=== PATIENT | male | born 1955 | race African-American/Black ===

== ENCOUNTER 2016-09-03 10:19 | Inpatient (IN) | payer OTHER ==
[2016-09-03 10:57] VITALS: BMI 23.7
--- NOTE | 2016-09-03 13:07 | HP ---
CIWA Score - CIWA Score Nausea/Vomitin-Int. Nausea w/Dry Heave Muscle Tremors: 3 Anxiety: 4-Mod. Anxious/Guarded Agitation: 3 Paroxysmal Sweats: 1-Minimal Palms Moist Orientation: 0-Oriented Tacttile Disturbances: 2-Mild Itch/Numbness/Burn (AND DIARRHEA) Auditory Disturbances: 0-None Visual Disturbances: 0-None Headache: 0-None Present CIWA-Ar Total Score: 17 Admission ROS S - HPI Chief Complaint: DETOX TX FOR ALCOHOL DEPENDENCE Allergies/Adverse Reactions: Allergies Allergy/AdvReac Type Severity Reaction Status Date / Time No Known Allergies Allergy Verified 09/03/16 11:47 History of Present Illness: 61 Y/O AA/MALE WITH A HX OF ALCOHOL AND COCAINE DEPENDENCE SEEKING DETOX TX. Exam Limitations: No Limitations - Ebola screening Have you traveled outside of the country in the last 21 days: No Have you had contact with anyone from an Ebola affected area: No Have you been sick,other than usual withdrawal symptoms: No Do you have a fever: No - Review of Systems Constitutional: Chills, Loss of Appetite, Night Sweats, Changes in sleep, Unintentional Wgt. Loss EENT: reports: Blurred Vision, Tearing, Nose Congestion, Dental Problems ( MISSING TEETH) Respiratory: reports: No Symptoms reported Cardiac: reports: Lightheadedness GI: reports: Diarrhea, Nausea, Poor Appetite, Poor Fluid Intake, Indigestion, Abdominal cramping : reports: Frequency Musculoskeletal: reports: No Symptoms Reported Integumentary: reports: Dryness Neuro: reports: Headache, Numbness, Tremors, Unsteady Gait, Dizziness Endocrine: reports: No Symptoms Reported Hematology: reports: No Symptoms Reported Psychiatric: reports: Orientated x3, Anxious, Depressed Other Systems: Reviewed and Negative Patient History - Patient Medical History Hx Anemia: No Hx Asthma: No Hx Chronic Obstructive Pulmonary Disease (COPD): No Hx Cancer: No Hx Cardiac Disorders: No Hx Congestive Heart Failure: No Hx Hypertension: No Hx Hypercholesterolemia: No Hx Pacemaker: No HX Cerebrovascular Accident: No Hx Seizures: No Hx Dementia: No Hx Diabetes: No Hx Gastrointestinal Disorders: No ( EXCEPT HEARTBURN SOMETIMES) Hx Liver Disease: No Hx Genitourinary Disorders: No Hx Sexually Transmitted Disorders: No Hx Renal Disease (ESRD): No Hx Thyroid Disease: No Hx Human Immunodeficiency Virus (HIV): No (NEGATIVE HX last 01/07) Hx Hepatitis C: No Hx Depression: No Hx Suicide Attempt: No (DENIES) Hx Bipolar Disorder: No Hx Schizophrenia: No - Patient Surgical History Past Surgical History: No Hx Neurologic Surgery: No Hx Cataract Extraction: No Hx Cardiac Surgery: No Hx Lung Surgery: No Hx Breast Surgery: No Hx Breast Biopsy: No Hx Abdominal Surgery: No Hx Appendectomy: No Hx Cholecystectomy: No Hx Genitourinary Surgery: No Hx Orthopedic Surgery: No Anesthesia Reaction: No - PPD History Previous Implant?: Yes Documented Results: Positive w/o proof Results: CXR(-)04/18/15 PPD to be Administered?: No - Reproductive History Patient is a Female of Child Bearing Age (11 -55 yrs old): No (MALE) - Smoking Cessation Smoking history: Current every day smoker Have you smoked in the past 12 months: Yes Aproximately how many cigarettes per day: 5 Hx Chewing Tobacco Use: No Initiated information on smoking cessation: Yes 'Breaking Loose' booklet given: 09/03/16 - Substance & Tx. History Hx Alcohol Use: Yes (BEER) Hx Substance Use: Yes (CRACK) Substance Use Type: Cocaine Hx Substance Use Treatment: Yes (LAST DETOX AT [facility] 01/2016) - Substances Abused Crack Route: Smoking Frequency: Daily Amount used: $14 Age of first use: 29 Date of Last Use: 09/02/16 Alcohol-beer Route: Oral Frequency: Daily Amount used: 3 (40 oz.) Age of first use: 19 Date of Last Use: 09/02/16 Family Disease History - Family Disease History Family Disease History: Other: Mother (HTN) Admission Physical Exam [facility] - Vital Signs Vital Signs: Vital Signs - 24 hr 09/03/16 10:53 Temperature 96.8 F L Pulse Rate 75 Respiratory 20 Rate Blood Pressure 118/74 - Physical General Appearance: Yes: Moderate Distress, Alcohol on Breath, Irritable, Anxious HEENTM: Yes: EOMI, Normocephalic, ADALGISA, Pharynx Normal Respiratory: Yes: Chest Non-Tender, Lungs Clear, Normal Breath Sounds, No Respiratory Distress Neck: Yes: Supple, Trachea in good position Breast: Yes: Breast Exam Deferred Cardiology: Yes: Regular Rhythm, Regular Rate, S1, S2 Abdominal: Yes: Normal Bowel Sounds, Non Tender, Flat, Soft Genitourinary: Yes: Other (N/C) Back: Yes: Within Normal Limits Musculoskeletal: Yes: full range of Motion, Gait Steady Extremities: Yes: Normal Range of Motion, Non-Tender Neurological: Yes: captain/check airman II-XII NML intact, Fully Oriented, Alert, Motor Strength 5/5 Integumentary: Yes: Dry, Warm Lymphatic: Yes: Within Normal Limits - Diagnostic (1) Alcohol dependence with uncomplicated withdrawal Current Visit: Yes Status: Acute (2) Cocaine dependence, uncomplicated Current Visit: Yes Status: Acute Cleared for Admission [facility] - Detox or Rehab [facility] Level of Care: Medically Managed Detox Regimen/Protocol: Librium [facility] Breath Alcohol Content Breath Alcohol Content: 0.042 Urine Drug Screen - Results Drug Screen Negative: No Urine Drug Screen Results: DANUTA-Cocaine
[2016-09-03] MEDS ORDERED: MENTHOL/PHENOL 1 EACH UD MM PRN (13:21)
[2016-09-03] MEDS ORDERED: MAGNESIUM CITRATE 300 ML BOTTLE PO PRN (13:21)
[2016-09-03] MEDS ORDERED: hydrOXYzine PAMOATE 25 MG CAPSULE (FP) PO PRN (13:21)
[2016-09-03] MEDS ORDERED: P-EPHED 60MG/TRIPROLIDI 2.5MG TABLET PO PRN (13:21)
[2016-09-03] MEDS ORDERED: chlordiazePOXIDE HCL 25 MG CAPSULE PO PRN (13:21)
[2016-09-03] MEDS ORDERED: LOPERAMIDE HCL 2 MG CAPSULE PO PRN (13:21)
[2016-09-03] MEDS ORDERED: NICOTINE POLACRILEX 2 MG GUM BUC PRN (13:21)
[2016-09-03] MEDS ORDERED: ACETAMINOPHEN 325 MG TABLET (FP) PO PRN (13:21)
[2016-09-03] MEDS ORDERED: MAGNESIUM HYDROX 2400MG/30ML ORAL SUSPENSION 30 ML CUP PO PRN (13:21)
[2016-09-03] MEDS ORDERED: IBUPROFEN 400 MG TABLET (FP) PO PRN (13:21)
[2016-09-03] MEDS ORDERED: MAG HYDROX/AL HYDROX/SIMETH 30 ML UNIT-DOSE CUP PO PRN (13:21)
[2016-09-03] MEDS ORDERED: guaiFENesin/D-METHORPHAN HB 10 ML UNIT-DOSE CUPS PO PRN (13:21)
[2016-09-03] MEDS: NICOTINE 14 MG/24 HOURS TOPICAL PATCH TD SCH (15:01)
[2016-09-03] MEDS: chlordiazePOXIDE HCL 25 MG CAPSULE PO SCH ×2 (17:27→22:13)
[2016-09-03 17:35] LABS: URINE APPEARANCE CLEAR; URINE BILIRUBIN NEGATIVE (NEGATIVE); URINE BLOOD NEGATIVE (NEGATIVE); URINE COLOR LTYELLOW; URINE GLUCOSE (UA) NEGATIVE (NEGATIVE); URINE KETONE NEGATIVE (NEGATIVE); URINE LEUK ESTERASE NEGATIVE (NEGATIVE); URINE NITRITE NEGATIVE (NEGATIVE); URINE PROTEIN NEGATIVE (NEGATIVE); URINE UROBILINOGEN NEGATIVE E.U./dl (0.2-1.0)
[2016-09-03] MEDS: THIAMINE HCL 100 MG TABLET (FP) PO SCH (22:13)
[2016-09-03] MEDS: diphenhydrAMINE HCL 50 MG CAPSULE PO PRN (22:13)
[2016-09-04] MEDS: chlordiazePOXIDE HCL 25 MG CAPSULE PO SCH ×4 (05:47→22:34)
[2016-09-04] MEDS ORDERED: ONDANSETRON *ODT* 4 MG TABLET SL PRN (10:06)
[2016-09-04] MEDS: PRENATAL VITAMINS W/ FOLIC ACID TABLET (FP) PO SCH (10:06)
[2016-09-04] MEDS: NICOTINE 14 MG/24 HOURS TOPICAL PATCH TD SCH (10:07)
--- NOTE | 2016-09-04 10:17 | PN ---
S CIWA - CIWA Score Nausea/Vomitin-No Nausea/No Vomiting Muscle Tremors: 4-Moderate,w/Arms Extend Anxiety: 3 Agitation: 4-Moderately Restless Paroxysmal Sweats: 3 Orientation: 0-Oriented Tacttile Disturbances: 0-None Auditory Disturbances: 0-None Visual Disturbances: 0-None Headache: 0-None Present CIWA-Ar Total Score: 14 BHS Progress Note (SOAP) Subjective: nausea headache sweats irritable Objective: 09/04/16 10:15 Vital Signs Temperature 97.0 F L 09/04/16 09:50 Pulse Rate 64 09/04/16 09:50 Respiratory Rate 18 09/04/16 09:50 Blood Pressure 128/70 09/04/16 09:50 O2 Sat by Pulse Oximetry (%) Laboratory Tests 09/03/16 15:00 Urine Color Ltyellow Urine Appearance Clear Urine pH 5.0 Ur Specific [place] 1.020 Urine Protein Negative Urine Glucose (UA) Negative Urine Ketones Negative Urine Blood Negative Urine Nitrite Negative Urine Bilirubin Negative Urine Urobilinogen Negative Ur Leukocyte Esterase Negative labs pending awake/alert ambulating no acute distress Assessment: 09/04/16 10:16 withdrawal sx Plan: continue detox increase fluids labs pending zofran prn
[2016-09-04 10:20] LABS: MCH 30.4 pg (25.7-33.7); MCHC 32.9 g/dl (32.0-35.9); MEAN CELL VOLUME 92.2 fl (80-96); PLATELET COUNT 191 K/MM3 (134-434); RDW 13.7 % (11.9-15.9); WHITE BLOOD COUNT 6.4 K/mm3 (4.0-10.0)
--- NOTE | 2016-09-04 11:00 | EKG ---
Test Reason : Blood Pressure : / mmHG Vent. Rate : 058 BPM Atrial Rate : 058 BPM P-R Int : 176 ms QRS Dur : 088 ms QT Int : 470 ms P-R-T Axes : 074 068 066 degrees QTc Int : 461 ms SINUS BRADYCARDIA OTHERWISE NORMAL ECG NO PREVIOUS ECGS AVAILABLE Confirmed by MEGHANN GARZA MD ([id number]) on 09/04/2016 10:59:47 AM Referred By: Confirmed By:MEGHANN GARZA MD
[2016-09-04 11:12] LABS: ALBUMIN 4.1 g/dl (3.4-5.0); ALK PHOS 59 U/L (45-117); ANION GAP 11 (8-16); BILIRUBIN,TOTAL 0.5 mg/dL (0.2-1.0); CALCIUM 8.4 mg/dL (8.5-10.1); CO2 24 mmol/L (21-32); COCKROFT - GAULT 82.47; CREATININE 1.1 mg/dL (0.7-1.3); GLUCOSE,RANDOM 122 mg/dL (74-106); SGOT/AST 21 U/L (15-37); SGPT/ALT 21 U/L (12-78); TOT PROT 7.3 g/dl (6.4-8.2)
[2016-09-04] MEDS: diphenhydrAMINE HCL 50 MG CAPSULE PO PRN (22:34)
[2016-09-04] MEDS: THIAMINE HCL 100 MG TABLET (FP) PO SCH (22:34)
[2016-09-05] MEDS: chlordiazePOXIDE HCL 25 MG CAPSULE PO SCH ×2 (05:45→10:19)
[2016-09-05] MEDS: PRENATAL VITAMINS W/ FOLIC ACID TABLET (FP) PO SCH (10:19)
[2016-09-05] MEDS: NICOTINE 14 MG/24 HOURS TOPICAL PATCH TD SCH (10:19)
--- NOTE | 2016-09-05 10:34 | PN ---
[facility] CIWA - CIWA Score Nausea/Vomitin-No Nausea/No Vomiting Muscle Tremors: 4-Moderate,w/Arms Extend Anxiety: 2 Agitation: 3 Paroxysmal Sweats: 2 Orientation: 0-Oriented Tacttile Disturbances: 0-None Auditory Disturbances: 0-None Visual Disturbances: 0-None Headache: 0-None Present CIWA-Ar Total Score: 11 S Progress Note (SOAP) Subjective: sweats agitation interrupted sleep Objective: 09/05/16 10:33 Vital Signs Temperature 98.1 F 09/05/16 09:53 Pulse Rate 54 L 09/05/16 09:53 Respiratory Rate 18 09/05/16 09:53 Blood Pressure 142/86 09/05/16 09:53 O2 Sat by Pulse Oximetry (%) Laboratory Tests 09/03/16 09/04/16 09/04/16 15:00 06:00 06:00 WBC 6.4 D RBC 4.14 Hgb 12.6 Hct 38.2 MCV 92.2 MCHC 32.9 RDW 13.7 Plt Count 191 MPV 9.0 Sodium 143 Potassium 4.0 Chloride 108 H Carbon Dioxide 24 Anion Gap 11 BUN 9 D Creatinine 1.1 Creat Clearance w eGFR > 60 Random Glucose 122 H D Calcium 8.4 L Total Bilirubin 0.5 AST 21 ALT 21 Alkaline Phosphatase 59 Total Protein 7.3 Albumin 4.1 Urine Color Ltyellow Urine Appearance Clear Urine pH 5.0 Ur Specific [place] 1.020 Urine Protein Negative Urine Glucose (UA) Negative Urine Ketones Negative Urine Blood Negative Urine Nitrite Negative Urine Bilirubin Negative Urine Urobilinogen Negative Ur Leukocyte Esterase Negative RPR Titer 09/04/16 06:00 WBC RBC Hgb Hct MCV MCHC RDW Plt Count MPV Sodium Potassium Chloride Carbon Dioxide Anion Gap BUN Creatinine Creat Clearance w eGFR Random Glucose Calcium Total Bilirubin AST ALT Alkaline Phosphatase Total Protein Albumin Urine Color Urine Appearance Urine pH Ur Specific [place] Urine Protein Urine Glucose (UA) Urine Ketones Urine Blood Urine Nitrite Urine Bilirubin Urine Urobilinogen Ur Leukocyte Esterase RPR Titer Nonreactive awake/alert ambulating no acute distress Assessment: 09/05/16 10:34 withdrawal sx Plan: continue detox increase fluids
[2016-09-05] MEDS: chlordiazePOXIDE 5 MG CAPSULE PO SCH ×2 (17:44→22:32)
[2016-09-05] MEDS: THIAMINE HCL 100 MG TABLET (FP) PO SCH (22:32)
[2016-09-05] MEDS: diphenhydrAMINE HCL 50 MG CAPSULE PO PRN (22:33)
[2016-09-06] MEDS: chlordiazePOXIDE 5 MG CAPSULE PO SCH (05:30)
[2016-09-06 09:51] VITALS: BP 152/94; PULSE 69; TEMP 96.6
--- NOTE | 2016-09-06 11:50 | PN ---
S Progress Note Note: pt refused to wait for medical staff to discuss reason why pt is leaving and not completing detox.pt refused to explain to RN and staff reason for leaving. Pt signed out AMA.
--- NOTE | 2016-09-06 11:52 | DS ---
[facility] Detox Discharge Summary Admission Date: 09/03/16 Discharge Date: 09/06/16 - History Present History: Alcohol Dependence, Cocaine Dependence - Physical Exam Results Vital Signs: Vital Signs Temperature 96.6 F L 09/06/16 09:51 Pulse Rate 69 09/06/16 09:51 Respiratory Rate 18 09/06/16 09:51 Blood Pressure 152/94 09/06/16 09:51 O2 Sat by Pulse Oximetry (%) - Treatment Hospital Course: Detox Protocol Followed, Detoxed Safely, Responded well, Discharged Condition Good, Rehab Referral Accepted - Medication Discharge Medications: Ambulatory Orders NK [No Known Home Medication] 04/14/15 - Diagnosis (1) Alcohol dependence with uncomplicated withdrawal Current Visit: Yes Status: Chronic (2) Cocaine dependence, uncomplicated Current Visit: Yes Status: Chronic - AMA Did Patient Leave Against Medical Advice: Yes
[2016-09-06] MEDS ORDERED: chlordiazePOXIDE HCL 10 MG CAPSULE PO SCH (17:00)
== END 2016-09-06 09:23 | disposition left against medical advice (07) | DRG 770 ==
LOC: YASAS 10:19 → Y6N 12:15
PROVIDERS: ADMIT Internal Medicine; ATTEND Internal Medicine
PROC: HZ2ZZZZ Detoxification Services for Substance Abuse Treatment (ICD-10-PCS; principal; 2016-09-03)
DX: F10.230 Alcohol dependence with withdrawal, uncomplicated (principal); F14.20 Cocaine dependence, uncomplicated; F17.210 Nicotine dependence, cigarettes, uncomplicated
CPT/HCPCS: 36415; 71020-TC; 80053; 81003; 85027; 86593; 93005; 93010

== ENCOUNTER 2016-12-08 11:01 | Inpatient (IN) | payer OTHER ==
[2016-12-08 12:35] VITALS: BMI 24.4
--- NOTE | 2016-12-08 12:55 | HP ---
CIWA Score - CIWA Score Nausea/Vomitin-Mild Nausea/No Vomiting Muscle Tremors: 3 Anxiety: 4-Mod. Anxious/Guarded Agitation: 1-Slight > Activity Paroxysmal Sweats: 1-Minimal Palms Moist Orientation: 1-Uncertain about Date Tacttile Disturbances: 1-Very Mild Itch/Numbness Auditory Disturbances: 1-Very Mild Visual Disturbances: 1-Very Mild Sensitivity Headache: 2-Mild CIWA-Ar Total Score: 16 Admission ROS BHS - HPI Chief Complaint: I need to stop, I want detox Allergies/Adverse Reactions: Allergies Allergy/AdvReac Type Severity Reaction Status Date / Time No Known Allergies Allergy Verified 09/03/16 11:47 History of Present Illness: 61 yo gentleman here for detox from alcohol. last detox was here August 2016, unable to go to rehab as no beds. No seizures. Exam Limitations: Clinical Condition - Ebola screening Have you traveled outside of the country in the last 21 days: No Have you had contact with anyone from an Ebola affected area: No Have you been sick,other than usual withdrawal symptoms: No Do you have a fever: No - Review of Systems Constitutional: Loss of Appetite, Night Sweats, Changes in sleep, Weakness EENT: reports: Blurred Vision Respiratory: reports: No Symptoms reported Cardiac: reports: No Symptoms Reported GI: reports: Nausea, Poor Appetite : reports: Frequency Musculoskeletal: reports: No Symptoms Reported Integumentary: reports: Dryness Neuro: reports: Numbness Endocrine: reports: No Symptoms Reported Hematology: reports: No Symptoms Reported Psychiatric: reports: Judgement Intact, Mood/Affect Appropiate, Orientated x3 Other Systems: Reviewed and Negative Patient History - Patient Medical History Hx Anemia: No Hx Asthma: No Hx Chronic Obstructive Pulmonary Disease (COPD): No Hx Cancer: No Hx Cardiac Disorders: No Hx Congestive Heart Failure: No Hx Hypertension: No Hx Hypercholesterolemia: No Hx Pacemaker: No HX Cerebrovascular Accident: No Hx Seizures: No Hx Dementia: No Hx Diabetes: No Hx Gastrointestinal Disorders: No Hx Liver Disease: No Hx Genitourinary Disorders: No Hx Sexually Transmitted Disorders: No Hx Renal Disease (ESRD): No Hx Thyroid Disease: No Hx Human Immunodeficiency Virus (HIV): No (NEGATIVE HX last 01/07) Hx Hepatitis C: No Hx Depression: No Hx Suicide Attempt: No Hx Bipolar Disorder: No Hx Schizophrenia: No - Patient Surgical History Past Surgical History: No Hx Neurologic Surgery: No Hx Cataract Extraction: No Hx Cardiac Surgery: No Hx Lung Surgery: No Hx Breast Surgery: No Hx Breast Biopsy: No Hx Abdominal Surgery: No Hx Appendectomy: No Hx Cholecystectomy: No Hx Genitourinary Surgery: No Hx Section: No Hx Orthopedic Surgery: No Anesthesia Reaction: No - PPD History Previous Implant?: Yes Documented Results: Positive w/proof (treated with INH x 6 months) Results: CXR(-)04/18/15 - Reproductive History Patient is a Female of Child Bearing Age (11 -55 yrs old): No (male) - Smoking Cessation Smoking history: Current every day smoker Have you smoked in the past 12 months: Yes Aproximately how many cigarettes per day: 5 Hx Chewing Tobacco Use: No Initiated information on smoking cessation: Yes 'Breaking Loose' booklet given: 12/08/16 (give on floor) - Substance & Tx. History Hx Alcohol Use: Yes Hx Substance Use: Yes Substance Use Type: Alcohol, Cocaine Hx Substance Use Treatment: Yes (detox, rehab) - Substances Abused Alcohol Route: Oral Frequency: Daily Amount used: 40 oz beer Age of first use: 19 Date of Last Use: 12/08/16 Crack Route: Smoking Frequency: 3-6 times per week Amount used: $10 Age of first use: 36 Date of Last Use: 12/07/16 Family Disease History - Family Disease History Family Disease History: Other: Father (, etoh), Mother (living, healthy) , Brother (one living - healthy), Sister (one living - no contact) Admission Physical Exam S - Vital Signs Vital Signs: Vital Signs - 24 hr 12/08/16 12:33 Temperature 96.3 F L Pulse Rate 72 Respiratory 20 Rate Blood Pressure 139/84 - Physical General Appearance: Yes: Nourished, Appropriately Dressed, Mild Distress HEENTM: Yes: Hearing grossly Normal, Normal ENT Inspection, Normocephalic, Normal Voice, Pharynx Normal Respiratory: Yes: Normal Breath Sounds, No Respiratory Distress Neck: Yes: No masses,lesions,Nodules, Supple Breast: Yes: Breast Exam Deferred Cardiology: Yes: Regular Rhythm, Regular Rate Abdominal: Yes: Soft Genitourinary: Yes: Frequency Back: Yes: Normal Inspection Musculoskeletal: Yes: full range of Motion, Gait Steady Extremities: Yes: Normal Capillary Refill, Normal Inspection, Non-Tender Neurological: Yes: Fully Oriented, Alert, Normal Mood/Affect, Normal Response Integumentary: Yes: Normal Color, Warm Lymphatic: Yes: Within Normal Limits - Diagnostic (1) Alcohol dependence with uncomplicated withdrawal Current Visit: Yes Status: Chronic (2) Cocaine dependence, uncomplicated Current Visit: Yes Status: Chronic Cleared for Admission [facility] - Detox or Rehab [facility] Level of Care: Medically Managed Detox Regimen/Protocol: Librium [facility] Breath Alcohol Content Breath Alcohol Content: 0.039 Urine Drug Screen - Results Drug Screen Negative: No Urine Drug Screen Results: DANUTA-Cocaine
[2016-12-08] MEDS ORDERED: MAGNESIUM CITRATE 300 ML BOTTLE PO PRN (12:56)
[2016-12-08] MEDS ORDERED: IBUPROFEN 400 MG TABLET (FP) PO PRN (12:56)
[2016-12-08] MEDS ORDERED: P-EPHED 60MG/TRIPROLIDI 2.5MG TABLET PO PRN (12:56)
[2016-12-08] MEDS ORDERED: ACETAMINOPHEN 325 MG TABLET (FP) PO PRN (12:56)
[2016-12-08] MEDS ORDERED: MAGNESIUM HYDROX 2400MG/30ML ORAL SUSPENSION 30 ML CUP PO PRN (12:56)
[2016-12-08] MEDS ORDERED: hydrOXYzine PAMOATE 50 MG CAPSULE (FP) PO PRN (12:56)
[2016-12-08] MEDS ORDERED: METHADONE HCL 10 MG TABLET (FOR DETOX USE ONLY) PO ONE ×2 (12:56→23:00)
[2016-12-08] MEDS ORDERED: MAG HYDROX/AL HYDROX/SIMETH 30 ML UNIT-DOSE CUP PO PRN (12:56)
[2016-12-08] MEDS ORDERED: NICOTINE POLACRILEX 4 MG GUM BUC PRN (12:56)
[2016-12-08] MEDS ORDERED: MENTHOL/PHENOL 1 EACH UD MM PRN (12:56)
[2016-12-08] MEDS ORDERED: guaiFENesin/D-METHORPHAN HB 10 ML UNIT-DOSE CUPS PO PRN (12:56)
[2016-12-08] MEDS ORDERED: chlordiazePOXIDE HCL 25 MG CAPSULE PO PRN (12:56)
[2016-12-08] MEDS ORDERED: LOPERAMIDE HCL 2 MG CAPSULE PO PRN (12:56)
[2016-12-08] MEDS ORDERED: chlordiazePOXIDE HCL 25 MG CAPSULE PO ONE (15:00)
[2016-12-08 17:38] LABS: URINE APPEARANCE CLEAR; URINE BILIRUBIN NEGATIVE (NEGATIVE); URINE BLOOD NEGATIVE (NEGATIVE); URINE COLOR YELLOW; URINE GLUCOSE (UA) NEGATIVE (NEGATIVE); URINE KETONE NEGATIVE (NEGATIVE); URINE LEUK ESTERASE NEGATIVE (NEGATIVE); URINE NITRITE NEGATIVE (NEGATIVE); URINE PROTEIN NEGATIVE (NEGATIVE); URINE UROBILINOGEN NEGATIVE mg/dL (0.2-1.0)
[2016-12-08] MEDS: chlordiazePOXIDE HCL 25 MG CAPSULE PO SCH ×2 (17:43→22:36)
[2016-12-08] MEDS: THIAMINE HCL 100 MG TABLET (FP) PO SCH (22:36)
[2016-12-09] MEDS: chlordiazePOXIDE HCL 25 MG CAPSULE PO SCH ×4 (05:40→22:01)
--- NOTE | 2016-12-09 09:23 | CONSULT ---
[facility] Psychiatric Consult - Data Date of interview: 12/09/16 Admission source: [facility] Identifying data: Mr Hoff is a 61 years old single Black male, unemployed on public assistance, living in an O Substance Abuse History: Reports history of alcohol and cocaine use. Reports that he started drining alcohol at age 19, consumes 40oz of beer daily. Last drink on 12/08/16. Reports that he started smoking crack cocaine at age 36, consumes $10 3-6 times weekly. Last Smoked on 12/07/16 Medical History: Significant for treatment for +PPD. Smokes 5 cigarettes daily Psychiatric History: Denies history of previous psychiatric treatment Physical/Sexual Abuse/Trauma History: Denies history of emotional, physical or sexual abuse as well as DV relationship. No service Additional Comment: Reports history of 5 previous misdemeanor arrests on charges of trespassing. No probation at present Mental Status Exam - Mental Status Exam Alert and Oriented to: Time, Place, Person Cognitive Function: Fair Patient Appearance: Well Groomed Mood: Anxious Affect: Appropriate Patient Behavior: Cooperative Speech Pattern: Clear Voice Loudness: Normal Thought Process: Intact, Goal Oriented Hallucinations: Denies Suicidal Ideation: Denies Homicidal Ideation: Denies Insight/Judgement: Poor Sleep: Fair Appetite: Good Muscle strength/Tone: Normal Gait/Station: Normal Psychiatric Findings - Problem List ([place] 1, 2,3) (1) Substance-induced anxiety disorder Current Visit: Yes Status: Acute (2) Alcohol dependence with uncomplicated withdrawal Current Visit: Yes Status: Chronic (3) Cocaine dependence, uncomplicated Current Visit: Yes Status: Chronic (4) Nicotine dependence Current Visit: Yes Status: Acute (5) PPD positive, treated Current Visit: Yes Status: Acute - Initial Treatment Plan Initial Treatment Plan: Continue inpatient detoxification
[2016-12-09] MEDS ORDERED: METHADONE HCL 10 MG TABLET (FOR DETOX USE ONLY) PO SCH (10:00)
[2016-12-09] MEDS: PRENATAL VITAMINS W/ FOLIC ACID TABLET (FP) PO SCH (10:03)
[2016-12-09 10:38] LABS: MCH 29.4 pg (25.7-33.7); MCHC 31.9 g/dl (32.0-35.9); MEAN PLT VOLUME 8.7 fl (7.5-11.1); PLATELET COUNT 161 K/MM3 (134-434); RDW 14.2 % (11.9-15.9); WHITE BLOOD COUNT 3.2 K/mm3 (4.0-10.0)
[2016-12-09 10:53] LABS: ALBUMIN 3.5 g/dl (3.4-5.0); ALK PHOS 59 U/L (45-117); ANION GAP 8 (8-16); BILIRUBIN,TOTAL 0.5 mg/dL (0.2-1.0); CALCIUM 8.4 mg/dL (8.5-10.1); CO2 27 mmol/L (21-32); CREATININE 1.1 mg/dL (0.7-1.3); GLUCOSE,RANDOM 120 mg/dL (74-106); SGOT/AST 17 U/L (15-37); SGPT/ALT 18 U/L (12-78); TOT PROT 6.5 g/dl (6.4-8.2)
--- NOTE | 2016-12-09 15:48 | PN ---
S CIWA - CIWA Score Nausea/Vomitin-Int. Nausea w/Dry Heave Muscle Tremors: 4-Moderate,w/Arms Extend Anxiety: 4-Mod. Anxious/Guarded Agitation: 4-Moderately Restless Paroxysmal Sweats: 3 Orientation: 0-Oriented Tacttile Disturbances: 1-Very Mild Itch/Numbness Auditory Disturbances: 0-None Visual Disturbances: 0-None Headache: 1-Very Mild CIWA-Ar Total Score: 21 BHS Progress Note (SOAP) Subjective: Chills, tremor, nausea, interrupted sleep, sweating Objective: 12/09/16 15:46 Last Vital Signs Temp Pulse Resp BP Pulse Ox 97.4 F L 57 L 18 141/84 12/09/16 13:33 12/09/16 13:33 12/09/16 13:33 12/09/16 13:33 Laboratory Tests 12/08/16 12/09/16 12/09/16 17:20 07:30 07:30 WBC 3.2 L D RBC 4.51 Hgb 13.3 Hct 41.5 MCV 92.0 MCH 29.4 MCHC 31.9 L RDW 14.2 Plt Count 161 MPV 8.7 Sodium 143 Potassium 4.0 Chloride 108 H Carbon Dioxide 27 Anion Gap 8 BUN 12 D Creatinine 1.1 Creat Clearance w eGFR > 60 Random Glucose 120 H Calcium 8.4 L Total Bilirubin 0.5 AST 17 ALT 18 Alkaline Phosphatase 59 Total Protein 6.5 Albumin 3.5 Urine Color Yellow Urine Appearance Clear Urine pH 5.0 Ur Specific [place] 1.025 Urine Protein Negative Urine Glucose (UA) Negative Urine Ketones Negative Urine Blood Negative Urine Nitrite Negative Urine Bilirubin Negative Urine Urobilinogen Negative RPR Titer 12/09/16 07:30 WBC RBC Hgb Hct MCV MCH MCHC RDW Plt Count MPV Sodium Potassium Chloride Carbon Dioxide Anion Gap BUN Creatinine Creat Clearance w eGFR Random Glucose Calcium Total Bilirubin AST ALT Alkaline Phosphatase Total Protein Albumin Urine Color Urine Appearance Urine pH Ur Specific [place] Urine Protein Urine Glucose (UA) Urine Ketones Urine Blood Urine Nitrite Urine Bilirubin Urine Urobilinogen RPR Titer Nonreactive Labs noted Assessment: 12/09/16 15:47 Withdrawal symptoms Plan: Continue detox
[2016-12-09] MEDS: THIAMINE HCL 100 MG TABLET (FP) PO SCH (22:00)
[2016-12-10] MEDS: chlordiazePOXIDE HCL 25 MG CAPSULE PO SCH ×2 (05:10→10:04)
[2016-12-10] MEDS ORDERED: METHADONE HCL 5 MG TABLET (FOR DETOX USE ONLY) PO SCH (10:00)
[2016-12-10] MEDS: PRENATAL VITAMINS W/ FOLIC ACID TABLET (FP) PO SCH (10:04)
--- NOTE | 2016-12-10 10:52 | PN ---
[facility] CIWA - CIWA Score Nausea/Vomitin-No Nausea/No Vomiting Muscle Tremors: 3 Anxiety: 4-Mod. Anxious/Guarded Agitation: 3 Paroxysmal Sweats: 2 Orientation: 0-Oriented Tacttile Disturbances: 3-Moderate Itch/Numb/Burn Auditory Disturbances: 0-None Visual Disturbances: 2-Mild Sensitivity Headache: 0-None Present CIWA-Ar Total Score: 17 BHS Progress Note (SOAP) Subjective: Tremors, Anxious, Interrupted sleep. Objective: PT. A & O X 3, OBSERVED AMBULATING ON UNIT. NO ACUTE DISTRESS. 12/10/16 10:46 Vital Signs Temperature 98.0 F 12/10/16 09:34 Pulse Rate 82 12/10/16 09:34 Respiratory Rate 20 12/10/16 09:34 Blood Pressure 106/72 12/10/16 09:34 O2 Sat by Pulse Oximetry (%) Laboratory Tests 12/08/16 12/09/16 12/09/16 17:20 07:30 07:30 WBC 3.2 L D RBC 4.51 Hgb 13.3 Hct 41.5 MCV 92.0 MCH 29.4 MCHC 31.9 L RDW 14.2 Plt Count 161 MPV 8.7 Sodium 143 Potassium 4.0 Chloride 108 H Carbon Dioxide 27 Anion Gap 8 BUN 12 D Creatinine 1.1 Creat Clearance w eGFR > 60 Random Glucose 120 H Calcium 8.4 L Total Bilirubin 0.5 AST 17 ALT 18 Alkaline Phosphatase 59 Total Protein 6.5 Albumin 3.5 Urine Color Yellow Urine Appearance Clear Urine pH 5.0 Ur Specific [place] 1.025 Urine Protein Negative Urine Glucose (UA) Negative Urine Ketones Negative Urine Blood Negative Urine Nitrite Negative Urine Bilirubin Negative Urine Urobilinogen Negative RPR Titer 12/09/16 07:30 WBC RBC Hgb Hct MCV MCH MCHC RDW Plt Count MPV Sodium Potassium Chloride Carbon Dioxide Anion Gap BUN Creatinine Creat Clearance w eGFR Random Glucose Calcium Total Bilirubin AST ALT Alkaline Phosphatase Total Protein Albumin Urine Color Urine Appearance Urine pH Ur Specific [place] Urine Protein Urine Glucose (UA) Urine Ketones Urine Blood Urine Nitrite Urine Bilirubin Urine Urobilinogen RPR Titer Nonreactive LABS NOTED. PATIENT HAS HAD LOW WBC COUNTS ON SEVERAL PREVIOUS ADMISSIONS. 12/10/16 10:52 Assessment: 12/10/16 10:47 WITHDRAWAL SYMPTOMS. NEUTROPENIA. 12/10/16 10:53 Plan: CONTINUE DETOX. REPEAT CBC ON 12/11/2016 FOR LOW ADMISSION WBC LEVEL.
--- NOTE | 2016-12-10 17:01 | EKG ---
Test Reason : Blood Pressure : / mmHG Vent. Rate : 052 BPM Atrial Rate : 052 BPM P-R Int : 170 ms QRS Dur : 086 ms QT Int : 458 ms P-R-T Axes : 066 066 072 degrees QTc Int : 425 ms SINUS BRADYCARDIA WITH PREMATURE ATRIAL COMPLEXES OTHERWISE NORMAL ECG WHEN COMPARED WITH ECG OF 08-DEC-2016 14:57, PREMATURE ATRIAL COMPLEXES ARE NOW PRESENT T WAVE VARIATION Confirmed by MEGHANN GARZA MD ([id number]) on 12/10/2016 5:01:08 PM Referred By: Confirmed By:MEGHANN GARZA MD
--- NOTE | 2016-12-10 17:01 | EKG ---
Test Reason : Blood Pressure : / mmHG Vent. Rate : 057 BPM Atrial Rate : 057 BPM P-R Int : 172 ms QRS Dur : 086 ms QT Int : 432 ms P-R-T Axes : 000 146 146 degrees QTc Int : 420 ms SINUS BRADYCARDIA LEFT POSTERIOR FASCICULAR BLOCK NONSPECIFIC ST AND T WAVE ABNORMALITY ABNORMAL ECG WHEN COMPARED WITH ECG OF 03-SEP-2016 13:52, NO SIGNIFICANT CHANGE WAS FOUND Confirmed by MEGHANN GARZA MD ([id number]) on 12/10/2016 5:01:30 PM Referred By: Confirmed By:MEGHANN GARZA MD
[2016-12-10] MEDS: chlordiazePOXIDE 5 MG CAPSULE PO SCH ×2 (17:12→22:01)
[2016-12-10] MEDS: diphenhydrAMINE HCL 50 MG CAPSULE PO PRN (22:01)
[2016-12-10] MEDS: THIAMINE HCL 100 MG TABLET (FP) PO SCH (22:01)
[2016-12-11] MEDS: chlordiazePOXIDE 5 MG CAPSULE PO SCH ×2 (05:27→10:03)
[2016-12-11 09:57] LABS: BASOPHIL 0.6 % (0-2.0); EOSINOPHIL 8.2 % (0-4.5); MCH 29.7 pg (25.7-33.7); MCHC 32.3 g/dl (32.0-35.9); MEAN CELL VOLUME 92.1 fl (80-96); MEAN PLT VOLUME 8.9 fl (7.5-11.1); NEUTROPHILS 28.4 % (42.8-82.8); PLATELET COUNT 168 K/MM3 (134-434); WHITE BLOOD COUNT 3.4 K/mm3 (4.0-10.0)
[2016-12-11] MEDS: PRENATAL VITAMINS W/ FOLIC ACID TABLET (FP) PO SCH (10:03)
--- NOTE | 2016-12-11 11:12 | PN ---
BHS Progress Note (SOAP) Subjective: Anxious, Sweating. Objective: PT. A & O X 3, OBSERVED AMBULATING ON UNIT. NO ACUTE DISTRESS. PT. DENIES CHEST PAIN. 12/11/16 11:09 Vital Signs Temperature 97.4 F L 12/11/16 09:01 Pulse Rate 83 12/11/16 09:01 Respiratory Rate 18 12/11/16 09:01 Blood Pressure 139/96 12/11/16 09:01 O2 Sat by Pulse Oximetry (%) Laboratory Tests 12/08/16 12/09/16 12/09/16 17:20 07:30 07:30 WBC 3.2 L D RBC 4.51 Hgb 13.3 Hct 41.5 MCV 92.0 MCH 29.4 MCHC 31.9 L RDW 14.2 Plt Count 161 MPV 8.7 Neutrophils % Lymphocytes % Monocytes % Eosinophils % Basophils % Sodium 143 Potassium 4.0 Chloride 108 H Carbon Dioxide 27 Anion Gap 8 BUN 12 D Creatinine 1.1 Creat Clearance w eGFR > 60 Random Glucose 120 H Calcium 8.4 L Total Bilirubin 0.5 AST 17 ALT 18 Alkaline Phosphatase 59 Total Protein 6.5 Albumin 3.5 Urine Color Yellow Urine Appearance Clear Urine pH 5.0 Ur Specific [place] 1.025 Urine Protein Negative Urine Glucose (UA) Negative Urine Ketones Negative Urine Blood Negative Urine Nitrite Negative Urine Bilirubin Negative Urine Urobilinogen Negative RPR Titer 12/09/16 12/11/16 07:30 07:00 WBC 3.4 L RBC 4.40 Hgb 13.1 Hct 40.5 MCV 92.1 MCH 29.7 MCHC 32.3 RDW 14.0 Plt Count 168 MPV 8.9 Neutrophils % 28.4 L Lymphocytes % 51.2 H Monocytes % 11.6 H Eosinophils % 8.2 H Basophils % 0.6 Sodium Potassium Chloride Carbon Dioxide Anion Gap BUN Creatinine Creat Clearance w eGFR Random Glucose Calcium Total Bilirubin AST ALT Alkaline Phosphatase Total Protein Albumin Urine Color Urine Appearance Urine pH Ur Specific [place] Urine Protein Urine Glucose (UA) Urine Ketones Urine Blood Urine Nitrite Urine Bilirubin Urine Urobilinogen RPR Titer Nonreactive LABS NOTED. RESULTS OF REPEAT CBC NOTED. 12/11/16 11:11 Assessment: 12/11/16 11:10 WITHDRAWAL SYMPTOMS. Plan: CONTINUE DETOX.
[2016-12-11] MEDS: chlordiazePOXIDE HCL 10 MG CAPSULE PO SCH ×2 (17:30→22:02)
[2016-12-11] MEDS: diphenhydrAMINE HCL 50 MG CAPSULE PO PRN (22:02)
[2016-12-11] MEDS: THIAMINE HCL 100 MG TABLET (FP) PO SCH (22:02)
[2016-12-12] MEDS: chlordiazePOXIDE HCL 10 MG CAPSULE PO SCH ×2 (05:13→10:49)
[2016-12-12 09:21] VITALS: BP 143/85; PULSE 64; TEMP 97.1
[2016-12-12] MEDS ORDERED: METHADONE HCL 10 MG TABLET (FOR DETOX USE ONLY) PO SCH (10:00)
[2016-12-12] MEDS: PRENATAL VITAMINS W/ FOLIC ACID TABLET (FP) PO SCH (10:49)
--- NOTE | 2016-12-12 16:38 | DS ---
[facility] Detox Discharge Summary Admission Date: 12/08/16 Discharge Date: 12/12/16 - History Present History: Alcohol Dependence, Cocaine Dependence Additional Comments: PATIENT CONSIDERING [facility] ([place], [place] FOR AFTERCARE. PATIENT DISCHARGED FROM DETOX UNIT IN STABLE MEDICAL CONDITION. Pertinent Past History: History of Positive PPD (Treated), Nicotine dependence. - Physical Exam Results Vital Signs: Vital Signs Temperature 97.1 F L 12/12/16 09:20 Pulse Rate 64 12/12/16 09:20 Respiratory Rate 18 12/12/16 09:20 Blood Pressure 143/85 12/12/16 09:20 O2 Sat by Pulse Oximetry (%) Pertinent Admission Physical Exam Findings: WITHDRAWAL SYMPTOMS. Laboratory Tests 12/08/16 12/09/16 12/09/16 17:20 07:30 07:30 WBC 3.2 L D RBC 4.51 Hgb 13.3 Hct 41.5 MCV 92.0 MCH 29.4 MCHC 31.9 L RDW 14.2 Plt Count 161 MPV 8.7 Neutrophils % Lymphocytes % Monocytes % Eosinophils % Basophils % Sodium 143 Potassium 4.0 Chloride 108 H Carbon Dioxide 27 Anion Gap 8 BUN 12 D Creatinine 1.1 Creat Clearance w eGFR > 60 Random Glucose 120 H Calcium 8.4 L Total Bilirubin 0.5 AST 17 ALT 18 Alkaline Phosphatase 59 Total Protein 6.5 Albumin 3.5 Urine Color Yellow Urine Appearance Clear Urine pH 5.0 Ur Specific [place] 1.025 Urine Protein Negative Urine Glucose (UA) Negative Urine Ketones Negative Urine Blood Negative Urine Nitrite Negative Urine Bilirubin Negative Urine Urobilinogen Negative RPR Titer 12/09/16 12/11/16 07:30 07:00 WBC 3.4 L RBC 4.40 Hgb 13.1 Hct 40.5 MCV 92.1 MCH 29.7 MCHC 32.3 RDW 14.0 Plt Count 168 MPV 8.9 Neutrophils % 28.4 L Lymphocytes % 51.2 H Monocytes % 11.6 H Eosinophils % 8.2 H Basophils % 0.6 Sodium Potassium Chloride Carbon Dioxide Anion Gap BUN Creatinine Creat Clearance w eGFR Random Glucose Calcium Total Bilirubin AST ALT Alkaline Phosphatase Total Protein Albumin Urine Color Urine Appearance Urine pH Ur Specific [place] Urine Protein Urine Glucose (UA) Urine Ketones Urine Blood Urine Nitrite Urine Bilirubin Urine Urobilinogen RPR Titer Nonreactive LABS NOTED. - Treatment Hospital Course: Detox Protocol Followed, Detoxed Safely, Responded well, Discharged Condition Good, Rehab Referral Accepted Patient has Accepted a Rehab Referral to: [facility] ( [place]) - Medication Discharge Medications: Ambulatory Orders NK [No Known Home Medication] 04/14/15 - Diagnosis (1) Nicotine dependence Status: Chronic Qualifiers: Nicotine product type: cigarettes Substance use status: uncomplicated Qualified Code(s): F17.210 - Nicotine dependence, cigarettes, uncomplicated (2) PPD positive, treated Status: Chronic (3) Substance-induced anxiety disorder Status: Acute (4) Alcohol dependence with uncomplicated withdrawal Status: Acute (5) Cocaine dependence, uncomplicated Status: Acute - AMA Did Patient Leave Against Medical Advice: No
[2016-12-13] MEDS ORDERED: METHADONE HCL 5 MG TABLET (FOR DETOX USE ONLY) PO SCH (06:00)
== END 2016-12-12 09:06 | disposition home or self-care (01) | DRG 774 ==
LOC: YASAS 11:01 → Y3N 14:20
PROVIDERS: ADMIT Internal Medicine; ATTEND Internal Medicine
PROC: HZ2ZZZZ Detoxification Services for Substance Abuse Treatment (ICD-10-PCS; principal; 2016-12-08)
DX: F10.230 Alcohol dependence with withdrawal, uncomplicated (principal); F14.20 Cocaine dependence, uncomplicated; F17.210 Nicotine dependence, cigarettes, uncomplicated; F19.280 Other psychoactive substance dependence with psychoactive substance-induced anxiety disorder; R76.11 Nonspecific reaction to tuberculin skin test without active tuberculosis
CPT/HCPCS: 36415; 80053; 81003; 85025; 85027; 86593; 93005; 93010

== ENCOUNTER 2018-08-22 10:01 | Inpatient (IN) | payer OTHER ==
[2018-08-22 11:20] VITALS: BMI 25.9
--- NOTE | 2018-08-22 12:40 | HP ---
CIWA Score Nausea/Vomitin Muscle Tremors: None Anxiety: 0-No Anxiety, at Ease Agitation: 0-Normal Activity Paroxysmal Sweats: No Perspiration Orientation: 0-Oriented Tacttile Disturbances: 0-None Auditory Disturbances: 0-None Visual Disturbances: 0-None Headache: 0-None Present CIWA-Ar Total Score: 2 - Admission Criteria OASAS Guidelines: Admission for Medically Managed Detox: Requires at least one of the followin. CIWA greater than 12 2. Seizures within the past 24 hours 3. Delirium tremens within the past 24 hours 4. Hallucinations within the past 24 hours 5. Acute intervention needed for co occurring medical disorder 6. Acute intervention needed for co occurring psychiatric disorder 7. Severe withdrawal that cannot be handled at a lower level of care (continued vomiting, continued diarrhea, abnormal vital signs) requiring intravenous medication and/or fluids 8. Admission ROS [facility] - HPI Allergies/Adverse Reactions: Allergies Allergy/AdvReac Type Severity Reaction Status Date / Time No Known Allergies Allergy Verified 08/22/18 11:06 History of Present Illness: pt here requesting detox from etoh use , reports 40 oz beer x 2 every other day " off and on " since age 22, reports sobriety in 2018 x 2 months while in outpt , denies symptoms if not drinking, reports fall 08/06/ while using cocaine , fell when the elevator door closed and frx r foot , went to [facility], r leg casted through 09/18/18 per pt . Latest etoh use 2 days ago , currently asymptomatic , reports past blackouts . cocaine : 30-40 $ every two days tobacco : 03/28 ppd pMHX : denies PSHX : denies psych : denies Meds : denies . SHX : lives alone Exam Limitations: No Limitations - Ebola screening Have you traveled outside of the country in the last 21 days: No (N) Have you had contact with anyone from an Ebola affected area: No Do you have a fever: No - Review of Systems Constitutional: Loss of Appetite EENT: reports: Other (reading glasses) Respiratory: reports: SOB with Exertion Cardiac: reports: No Symptoms Reported GI: reports: See HPI : reports: No Symptoms Reported Musculoskeletal: reports: Other (r foot frx) Neuro: reports: No Symptoms reported Endocrine: reports: No Symptoms Reported Psychiatric: reports: Orientated x3 Patient History - Patient Medical History Hx Anemia: No Hx Asthma: No Hx Chronic Obstructive Pulmonary Disease (COPD): No Hx Cancer: No Hx Cardiac Disorders: No Hx Congestive Heart Failure: No Hx Hypertension: No Hx Hypercholesterolemia: No Hx Pacemaker: No HX Cerebrovascular Accident: No Hx Seizures: No Hx Dementia: No Hx Diabetes: No Hx Gastrointestinal Disorders: No Hx Liver Disease: No Hx Genitourinary Disorders: No Hx Sexually Transmitted Disorders: No Hx Renal Disease (ESRD): No Hx Thyroid Disease: No Hx Human Immunodeficiency Virus (HIV): No (NEGATIVE HX last 01/07) Hx Hepatitis C: No Hx Depression: No Hx Suicide Attempt: No Hx Bipolar Disorder: No Hx Schizophrenia: No - Patient Surgical History Past Surgical History: No Hx Neurologic Surgery: No Hx Cataract Extraction: No Hx Cardiac Surgery: No Hx Lung Surgery: No Hx Breast Surgery: No Hx Breast Biopsy: No Hx Abdominal Surgery: No Hx Appendectomy: No Hx Cholecystectomy: No Hx Genitourinary Surgery: No Hx Section: No Hx Orthopedic Surgery: No Anesthesia Reaction: No - PPD History Results: CXR(-)04/18/15 - Smoking Cessation Smoking history: Current every day smoker Have you smoked in the past 12 months: Yes Aproximately how many cigarettes per day: 5 Hx Chewing Tobacco Use: No Initiated information on smoking cessation: No - Substances abused Alcohol Substance route: Oral Frequency: 3-6 times per week Amount used: 2 40ounces Age of first use: 19 Date of last use: 08/21/18 Crack Substance route: Smoking Frequency: 3-6 times per week Amount used: $30-40 Age of first use: 36 Date of last use: 08/21/18 Family Disease History - Family Disease History Family Disease History: Other: Father (, etoh), Mother (living, healthy) , Brother (one living - healthy), Sister (one living - no contact) Admission Physical Exam BHS - Vital Signs Vital Signs: Vital Signs - 24 hr 08/22/18 08/22/18 11:13 11:44 Temperature 97.0 F L 97.0 F L - Physical General Appearance: Yes: No Apparent Distress, Anxious HEENTM: Yes: EOMI, Hearing grossly Normal, Normocephalic, Normal Voice Respiratory: Yes: Chest Non-Tender, Lungs Clear, Normal Breath Sounds, No Respiratory Distress, No Accessory Muscle Use Neck: Yes: No masses,lesions,Nodules, Trachea in good position Cardiology: Yes: Regular Rhythm, Regular Rate, S1, S2 Abdominal: Yes: Non Tender, Soft Back: Yes: Normal Inspection Musculoskeletal: Yes: Other (R LE W/ CAST to knee) Extremities: Yes: Other (R LE w/cast to knee) Neurological: Yes: Alert, Motor Strength 5/5 Integumentary: Yes: Warm - Diagnostic (1) Nicotine dependence Current Visit: Yes Status: Chronic Qualifiers: Nicotine product type: cigarettes Substance use status: uncomplicated Qualified Code(s): F17.210 - Nicotine dependence, cigarettes, uncomplicated (2) Alcohol dependence Current Visit: Yes Status: Acute Qualifiers: Substance use status: in remission Qualified Code(s): F10.21 - Alcohol dependence, in remission Breathalyzer - Breathalyzer Breathalyzer: 0 Urine Drug Screen - Test Device Lot number: [id number] Expiration date: 05/22/18 - Control Is test valid?: Yes - Results Drug screen NEGATIVE: No Urine drug screen results: THC-Marijuana, DANUTA-Cocaine, MET-Methamphetamine Inpatient Rehab Admission - Rehab Decision to Admit Inpatient rehab admission?: Yes - Initial Determination Are CD services needed?: Yes Free of communicable disease: Yes Not in need of hospitalization: Yes - Rehab Admission Criteria Previous failed treatment: No Poor recovery environment: Yes Comorbidities: No Lacks judgement: Yes Patient is meeting Inpatient Rehab admission criteria:: Yes
[2018-08-22] MEDS ORDERED: MAGNESIUM CITRATE 300 ML BOTTLE PO PRN (13:37)
[2018-08-22] MEDS ORDERED: guaiFENesin 200 MG/10 ML 10 ML UNIT-DOSE CUPS PO PRN (13:37)
[2018-08-22] MEDS ORDERED: MENTHOL/PHENOL 1 EACH UD MM PRN (13:37)
[2018-08-22] MEDS ORDERED: P-EPHED 60MG/TRIPROLIDI 2.5MG TABLET PO PRN (13:37)
[2018-08-22] MEDS ORDERED: MAGNESIUM HYDROX 2400MG/30ML ORAL SUSPENSION 30 ML CUP PO PRN (13:37)
[2018-08-22] MEDS ORDERED: MAG HYDROX/AL HYDROX/SIMETH 30 ML UNIT-DOSE CUP PO PRN (13:37)
[2018-08-22 17:02] LABS: HEMATOCRIT 40.5 % (35.4-49); MCH 29.6 pg (25.7-33.7); MCHC 32.1 g/dl (32.0-35.9); MEAN CELL VOLUME 92.3 fl (80-96); MEAN PLT VOLUME 8.6 fl (7.5-11.1); PLATELET COUNT 203 K/MM3 (134-434); RBC 4.39 M/mm3 (4.00-5.60); RDW 13.9 % (11.9-15.9); WHITE BLOOD COUNT 4.5 K/mm3 (4.0-10.0)
[2018-08-22 17:18] LABS: ALBUMIN 4.7 g/dl (3.4-5.0); BILIRUBIN,TOTAL 0.5 mg/dL (0.2-1); CALCIUM 9.6 mg/dL (8.5-10.1); CREATININE 1.1 mg/dL (0.55-1.3); POTASSIUM 4.1 mmol/L (3.5-5.1); TOT PROT 7.6 g/dl (6.4-8.2)
[2018-08-22] MEDS: THIAMINE HCL 100 MG TABLET (FP) PO SCH (21:37)
[2018-08-22] MEDS: MELATONIN 5 MG TABLETS PO PRN (22:17)
[2018-08-23] MEDS: PRENATAL VITAMINS W/ FOLIC ACID TABLET (FP) PO SCH (09:56)
[2018-08-23 13:01] LABS: PH,URINE 6.5 (5.0-8.0); URINE APPEARANCE CLEAR; URINE BILIRUBIN NEGATIVE (NEGATIVE); URINE COLOR YELLOW; URINE GLUCOSE (UA) 2+ (NEGATIVE); URINE KETONE NEGATIVE (NEGATIVE); URINE LEUK ESTERASE NEGATIVE (NEGATIVE); URINE NITRITE NEGATIVE (NEGATIVE); URINE PROTEIN NEGATIVE (NEGATIVE)
[2018-08-23] MEDS: MELATONIN 5 MG TABLETS PO PRN (21:18)
[2018-08-23] MEDS: THIAMINE HCL 100 MG TABLET (FP) PO SCH (21:18)
[2018-08-24] MEDS: PRENATAL VITAMINS W/ FOLIC ACID TABLET (FP) PO SCH (09:35)
[2018-08-24] MEDS ORDERED: NICOTINE POLACRILEX 2 MG GUM BUC PRN (10:03)
[2018-08-24] MEDS: THIAMINE HCL 100 MG TABLET (FP) PO SCH (21:29)
[2018-08-24] MEDS: MELATONIN 5 MG TABLETS PO PRN (21:29)
[2018-08-25] MEDS: PRENATAL VITAMINS W/ FOLIC ACID TABLET (FP) PO SCH (10:40)
--- NOTE | 2018-08-25 15:16 | PN ---
[facility] Progress Note Note: PT REQUESTING HEP C TESTING--SCREENING. Vital Signs - 24 hr 08/25/18 08/25/18 08/25/18 00:30 03:30 06:43 Temperature 97.8 F Pulse Rate 65 Respiratory 18 18 18 Rate Blood Pressure 154/92 08/25/18 09:30 Temperature Pulse Rate 75 Respiratory 18 Rate Blood Pressure 123/69 Laboratory Tests 08/22/18 08/22/18 08/22/18 13:45 13:45 13:45 WBC 4.5 RBC 4.39 Hgb 13.0 Hct 40.5 MCV 92.3 MCH 29.6 MCHC 32.1 RDW 13.9 Plt Count 203 D MPV 8.6 Sodium 137 Potassium 4.1 Chloride 107 Carbon Dioxide 28 Anion Gap 2 L BUN 16 Creatinine 1.1 Est GFR (CKD-EPI)AfAm 82.95 Est GFR (CKD-EPI)NonAf 71.57 Random Glucose 102 Calcium 9.6 Total Bilirubin 0.5 AST 14 L ALT 18 Alkaline Phosphatase 62 Total Protein 7.6 Albumin 4.7 Urine Color Urine Appearance Urine pH Ur Specific [place] Urine Protein Urine Glucose (UA) Urine Ketones Urine Blood Urine Nitrite Urine Bilirubin Urine Urobilinogen Ur Leukocyte Esterase RPR Titer Nonreactive 08/23/18 10:46 WBC RBC Hgb Hct MCV MCH MCHC RDW Plt Count MPV Sodium Potassium Chloride Carbon Dioxide Anion Gap BUN Creatinine Est GFR (CKD-EPI)AfAm Est GFR (CKD-EPI)NonAf Random Glucose Calcium Total Bilirubin AST ALT Alkaline Phosphatase Total Protein Albumin Urine Color Yellow Urine Appearance Clear Urine pH 6.5 D Ur Specific [place] 1.024 Urine Protein Negative Urine Glucose (UA) 2+ H Urine Ketones Negative Urine Blood Negative Urine Nitrite Negative Urine Bilirubin Negative Urine Urobilinogen 1.0 Ur Leukocyte Esterase Negative RPR Titer PLAN;ORDERED FOR 08/26/18.
[2018-08-25] MEDS: THIAMINE HCL 100 MG TABLET (FP) PO SCH (21:10)
[2018-08-25] MEDS: MELATONIN 5 MG TABLETS PO PRN (21:11)
[2018-08-26] MEDS: PRENATAL VITAMINS W/ FOLIC ACID TABLET (FP) PO SCH (09:50)
[2018-08-26] MEDS: ACETAMINOPHEN 325 MG TABLET (FP) PO PRN (17:50)
[2018-08-26] MEDS: THIAMINE HCL 100 MG TABLET (FP) PO SCH (21:16)
[2018-08-26] MEDS: MELATONIN 5 MG TABLETS PO PRN (21:16)
[2018-08-27] MEDS: ACETAMINOPHEN 325 MG TABLET (FP) PO PRN (05:58)
[2018-08-27] MEDS: PRENATAL VITAMINS W/ FOLIC ACID TABLET (FP) PO SCH (10:06)
[2018-08-27] MEDS: THIAMINE HCL 100 MG TABLET (FP) PO SCH (21:20)
[2018-08-27] MEDS: MELATONIN 5 MG TABLETS PO PRN (21:20)
[2018-08-28] MEDS: PRENATAL VITAMINS W/ FOLIC ACID TABLET (FP) PO SCH (10:00)
[2018-08-28] MEDS: IBUPROFEN 400 MG TABLET (FP) PO PRN ×2 (13:22→21:27)
--- NOTE | 2018-08-28 15:03 | PN ---
[facility] Progress Note Note: informed hepatitis c test result Laboratory Last Values WBC 4.5 K/mm3 (4.0-10.0) 08/22/18 13:45 RBC 4.39 M/mm3 (4.00-5.60) 08/22/18 13:45 Hgb 13.0 GM/dL (11.7-16.9) 08/22/18 13:45 Hct 40.5 % (35.4-49) 08/22/18 13:45 MCV 92.3 fl (80-96) 08/22/18 13:45 MCH 29.6 pg (25.7-33.7) 08/22/18 13:45 MCHC 32.1 g/dl (32.0-35.9) 08/22/18 13:45 RDW 13.9 % (11.9-15.9) 08/22/18 13:45 Plt Count 203 K/MM3 (134-434) D 08/22/18 13:45 MPV 8.6 fl (7.5-11.1) 08/22/18 13:45 Sodium 137 mmol/L (136-145) 08/22/18 13:45 Potassium 4.1 mmol/L (3.5-5.1) 08/22/18 13:45 Chloride 107 mmol/L (98-107) 08/22/18 13:45 Carbon Dioxide 28 mmol/L (21-32) 08/22/18 13:45 Anion Gap 2 MMOL/L (8-16) L 08/22/18 13:45 BUN 16 mg/dL (7-18) 08/22/18 13:45 Creatinine 1.1 mg/dL (0.55-1.3) 08/22/18 13:45 Est GFR (CKD-EPI)AfAm 82.95 08/22/18 13:45 Est GFR (CKD-EPI)NonAf 71.57 08/22/18 13:45 Random Glucose 102 mg/dL (74-106) 08/22/18 13:45 Calcium 9.6 mg/dL (8.5-10.1) 08/22/18 13:45 Total Bilirubin 0.5 mg/dL (0.2-1) 08/22/18 13:45 AST 14 U/L (15-37) L 08/22/18 13:45 ALT 18 U/L (13-61) 08/22/18 13:45 Alkaline Phosphatase 62 U/L (45-117) 08/22/18 13:45 Total Protein 7.6 g/dl (6.4-8.2) 08/22/18 13:45 Albumin 4.7 g/dl (3.4-5.0) 08/22/18 13:45 Urine Color Yellow 08/23/18 10:46 Urine Appearance Clear 08/23/18 10:46 Urine pH 6.5 (5.0-8.0) D 08/23/18 10:46 Ur Specific [place] 1.024 (1.010-1.035) 08/23/18 10:46 Urine Protein Negative (NEGATIVE) 08/23/18 10:46 Urine Glucose (UA) 2+ (NEGATIVE) H 08/23/18 10:46 Urine Ketones Negative (NEGATIVE) 08/23/18 10:46 Urine Blood Negative (NEGATIVE) 08/23/18 10:46 Urine Nitrite Negative (NEGATIVE) 08/23/18 10:46 Urine Bilirubin Negative (NEGATIVE) 08/23/18 10:46 Urine Urobilinogen 1.0 mg/dL (0.2-1.0) 08/23/18 10:46 Ur Leukocyte Esterase Negative (NEGATIVE) 08/23/18 10:46 RPR Titer Nonreactive (NONREACTIVE) 08/22/18 13:45 Hep C Ab Diagnostic <0.1 s/co ratio (0.0-0.9) 08/26/18 06:00 lab noted discuss hepatitis c prevention
[2018-08-28] MEDS: THIAMINE HCL 100 MG TABLET (FP) PO SCH (21:26)
[2018-08-28] MEDS: MELATONIN 5 MG TABLETS PO PRN (21:29)
[2018-08-29] MEDS: PRENATAL VITAMINS W/ FOLIC ACID TABLET (FP) PO SCH (10:31)
[2018-08-29] MEDS: MELATONIN 5 MG TABLETS PO PRN (21:09)
[2018-08-29] MEDS: THIAMINE HCL 100 MG TABLET (FP) PO SCH (21:09)
[2018-08-30] MEDS: PRENATAL VITAMINS W/ FOLIC ACID TABLET (FP) PO SCH (10:47)
[2018-08-30] MEDS: THIAMINE HCL 100 MG TABLET (FP) PO SCH (21:43)
[2018-08-30] MEDS: MELATONIN 5 MG TABLETS PO PRN (21:43)
[2018-08-31] MEDS: PRENATAL VITAMINS W/ FOLIC ACID TABLET (FP) PO SCH (10:23)
[2018-08-31] MEDS: ACETAMINOPHEN 325 MG TABLET (FP) PO PRN (16:57)
[2018-08-31] MEDS: MELATONIN 5 MG TABLETS PO PRN (21:26)
[2018-08-31] MEDS: THIAMINE HCL 100 MG TABLET (FP) PO SCH (21:26)
[2018-09-01] MEDS: IBUPROFEN 400 MG TABLET (FP) PO PRN (06:35)
[2018-09-01] MEDS: PRENATAL VITAMINS W/ FOLIC ACID TABLET (FP) PO SCH (10:26)
[2018-09-01] MEDS: ACETAMINOPHEN 325 MG TABLET (FP) PO PRN (17:44)
[2018-09-01] MEDS: THIAMINE HCL 100 MG TABLET (FP) PO SCH (21:16)
[2018-09-01] MEDS: MELATONIN 5 MG TABLETS PO PRN (21:16)
[2018-09-02] MEDS: IBUPROFEN 400 MG TABLET (FP) PO PRN ×2 (06:42→21:38)
[2018-09-02] MEDS: PRENATAL VITAMINS W/ FOLIC ACID TABLET (FP) PO SCH (09:31)
[2018-09-02] MEDS ORDERED: BENZOCAINE 20 % GEL TUBE MM PRN (09:37)
[2018-09-02] MEDS: MELATONIN 5 MG TABLETS PO PRN (21:37)
[2018-09-02] MEDS: THIAMINE HCL 100 MG TABLET (FP) PO SCH (21:37)
[2018-09-03] MEDS: PRENATAL VITAMINS W/ FOLIC ACID TABLET (FP) PO SCH (10:47)
[2018-09-03] MEDS: THIAMINE HCL 100 MG TABLET (FP) PO SCH (22:24)
[2018-09-04] MEDS: PRENATAL VITAMINS W/ FOLIC ACID TABLET (FP) PO SCH (10:35)
[2018-09-04] MEDS: IBUPROFEN 400 MG TABLET (FP) PO PRN (15:35)
[2018-09-04] MEDS: THIAMINE HCL 100 MG TABLET (FP) PO SCH (21:33)
[2018-09-04] MEDS: MELATONIN 5 MG TABLETS PO PRN (21:33)
[2018-09-05] MEDS: PRENATAL VITAMINS W/ FOLIC ACID TABLET (FP) PO SCH (11:07)
[2018-09-05] MEDS: IBUPROFEN 400 MG TABLET (FP) PO PRN (21:40)
[2018-09-05] MEDS: THIAMINE HCL 100 MG TABLET (FP) PO SCH (21:40)
[2018-09-05] MEDS: MELATONIN 5 MG TABLETS PO PRN (21:40)
[2018-09-06] MEDS: PRENATAL VITAMINS W/ FOLIC ACID TABLET (FP) PO SCH (10:03)
[2018-09-06] MEDS: MELATONIN 5 MG TABLETS PO PRN (21:37)
[2018-09-06] MEDS: THIAMINE HCL 100 MG TABLET (FP) PO SCH (21:37)
[2018-09-07] MEDS: PRENATAL VITAMINS W/ FOLIC ACID TABLET (FP) PO SCH ×2 (09:49→11:58)
[2018-09-07] MEDS: THIAMINE HCL 100 MG TABLET (FP) PO SCH (21:56)
[2018-09-08] MEDS: PRENATAL VITAMINS W/ FOLIC ACID TABLET (FP) PO SCH (10:36)
[2018-09-08] MEDS: IBUPROFEN 400 MG TABLET (FP) PO PRN (16:14)
[2018-09-08] MEDS: ACETAMINOPHEN 325 MG TABLET (FP) PO PRN (21:26)
[2018-09-08] MEDS: THIAMINE HCL 100 MG TABLET (FP) PO SCH (21:27)
[2018-09-08] MEDS: MELATONIN 5 MG TABLETS PO PRN (21:27)
[2018-09-09] MEDS: PRENATAL VITAMINS W/ FOLIC ACID TABLET (FP) PO SCH (10:07)
--- NOTE | 2018-09-09 15:05 | PN ---
[facility] Progress Note (SOAP) Subjective: Patient to be discharged tomorrow. Objective: A+O x3, no neurological deficits noted, heart sounds regular, lungs clear, abd soft, non-tender, non-distended,+BS. 09/09/18 15:01 CBC, BMP 08/22/18 13:45 08/22/18 13:45 Vital Signs (72 hours) 09/07/18 09/07/18 09/07/18 00:30 03:30 06:40 Temperature 98.5 F Pulse Rate 69 Respiratory 16 16 16 Rate Blood Pressure 154/90 09/08/18 09/08/18 09/08/18 00:30 03:30 06:44 Temperature 97.9 F Pulse Rate 92 H Respiratory 18 18 20 Rate Blood Pressure 150/94 09/09/18 09/09/18 09/09/18 00:30 03:30 06:58 Temperature 98.1 F Pulse Rate 76 Respiratory 18 18 18 Rate Blood Pressure 144/92 Assessment: Medically stable for discharge. Discharge Dx ETOH dependence Cocaine Dependence History of Right ankle fracture 09/09/18 15:03 Plan: Patient will go to [facility]. Receives primary care at [facility]. Does not have any home medications that need prescriptions.
[2018-09-09] MEDS: THIAMINE HCL 100 MG TABLET (FP) PO SCH (22:08)
[2018-09-10] MEDS: ACETAMINOPHEN 325 MG TABLET (FP) PO PRN (06:09)
[2018-09-10 07:04] VITALS: BP 151/91; PULSE 95; TEMP 97.6
== END 2018-09-10 09:25 | disposition home or self-care (01) | DRG 772 ==
LOC: YASAS 10:01 → Y3W 13:42
PROVIDERS: ADMIT Surgery; ATTEND Surgery
PROC: HZ42ZZZ Group Counseling for Substance Abuse Treatment, Cognitive-Behavioral (ICD-10-PCS; principal; 2018-08-22)
DX: F10.20 Alcohol dependence, uncomplicated (principal); F14.20 Cocaine dependence, uncomplicated; F17.210 Nicotine dependence, cigarettes, uncomplicated
CPT/HCPCS: 36415; 71045-TC-FY; 80053; 81003; 85027; 86593; 86803

== ENCOUNTER 2020-09-07 12:56 | Inpatient (IN) | payer OTHER ==
[2020-09-07 15:35] VITALS: BMI 25.7
[2020-09-07] MEDS ORDERED: MAGNESIUM CITRATE 300 ML BOTTLE PO PRN (16:59)
[2020-09-07] MEDS ORDERED: BISMUTH SUBSALICYLATE 524 MG/30 ML PO PRN (16:59)
[2020-09-07] MEDS ORDERED: ONDANSETRON *ODT* 4 MG TABLET SL PRN (16:59)
[2020-09-07] MEDS ORDERED: ACETAMINOPHEN 325 MG TABLET (FP) PO PRN ×2 (16:59)
[2020-09-07] MEDS ORDERED: METHOCARBAMOL 500 MG TABLET PO PRN (16:59)
[2020-09-07] MEDS ORDERED: MAG HYDROX/AL HYDROX/SIMETH 30 ML UNIT-DOSE CUP PO PRN (16:59)
[2020-09-07] MEDS ORDERED: LORazepam 1 MG TABLET PO PRN (16:59)
[2020-09-07] MEDS ORDERED: MAGNESIUM HYDROX 2400MG/30ML ORAL SUSPENSION 30 ML CUP PO PRN (16:59)
[2020-09-07] MEDS ORDERED: IBUPROFEN 400 MG TABLET (FP) PO PRN (16:59)
[2020-09-07] MEDS ORDERED: MENTHOL/PHENOL 1 EACH UD MM PRN (16:59)
[2020-09-07] MEDS: LORazepam 2 MG TABLET PO SCH ×2 (18:36→22:03)
[2020-09-07] MEDS: MELATONIN 5 MG TABLETS PO SCH (22:02)
[2020-09-07] MEDS: THIAMINE HCL 100 MG TABLET (FP) PO SCH (22:03)
[2020-09-08] MEDS: LORazepam 2 MG TABLET PO SCH ×4 (05:48→22:08)
[2020-09-08] MEDS: NICOTINE POLACRILEX 2 MG GUM BUC PRN ×2 (05:50→10:21)
[2020-09-08] MEDS: PRENATAL VITAMINS W/ FOLIC ACID TABLET (FP) PO SCH (10:17)
[2020-09-08] MEDS: hydrOXYzine PAMOATE 25 MG CAPSULE (FP) PO PRN (10:17)
[2020-09-08] MEDS: NICOTINE 14 MG/24 HOURS TOPICAL PATCH TD SCH (10:19)
[2020-09-08 11:09] LABS: HEMATOCRIT 40.5 % (35.4-49); HEMOGLOBIN 13.1 GM/dL (11.7-16.9); MCH 30.2 pg (25.7-33.7); MCHC 32.4 g/dl (32.0-35.9); MEAN CELL VOLUME 93.1 fl (80-96); MEAN PLT VOLUME 8.4 fl (7.5-11.1); PLATELET COUNT 221 10^3/uL (134-434); RBC 4.35 M/mm3 (4.00-5.60); WHITE BLOOD COUNT 3.7 K/mm3 (4.0-10.0)
[2020-09-08 11:22] LABS: URINE APPEARANCE CLEAR; URINE BILIRUBIN NEGATIVE (NEGATIVE); URINE COLOR YELLOW; URINE GLUCOSE (UA) NEGATIVE (NEGATIVE); URINE KETONE NEGATIVE (NEGATIVE); URINE LEUK ESTERASE NEGATIVE (NEGATIVE); URINE NITRITE NEGATIVE (NEGATIVE); URINE PROTEIN NEGATIVE (NEGATIVE)
[2020-09-08 11:24] LABS: CALCIUM 8.6 mg/dL (8.5-10.1)
[2020-09-08 11:25] LABS: ALBUMIN 3.6 g/dl (3.4-5.0); BLOOD UREA NITROGEN 16.6 mg/dL (7-18)
[2020-09-08 11:28] LABS: CREATININE 1.2 mg/dL (0.55-1.3)
[2020-09-08 11:29] LABS: TOT PROT 6.8 g/dl (6.4-8.2)
[2020-09-08] MEDS: MELATONIN 5 MG TABLETS PO SCH (22:08)
[2020-09-08] MEDS: THIAMINE HCL 100 MG TABLET (FP) PO SCH (22:08)
[2020-09-09] MEDS: LORazepam 1 MG TABLET PO SCH ×4 (05:43→22:05)
[2020-09-09] MEDS: PRENATAL VITAMINS W/ FOLIC ACID TABLET (FP) PO SCH (10:10)
[2020-09-09] MEDS: NICOTINE POLACRILEX 2 MG GUM BUC PRN (10:11)
[2020-09-09] MEDS: NICOTINE 14 MG/24 HOURS TOPICAL PATCH TD SCH (10:11)
[2020-09-09] MEDS: MELATONIN 5 MG TABLETS PO SCH (22:05)
[2020-09-09] MEDS: THIAMINE HCL 100 MG TABLET (FP) PO SCH (22:05)
[2020-09-10] MEDS ORDERED: LORazepam 0.5 MG TABLET PO PRN
[2020-09-10] MEDS: hydrOXYzine PAMOATE 25 MG CAPSULE (FP) PO PRN ×2 (02:00→22:11)
[2020-09-10] MEDS: LORazepam 0.5 MG TABLET PO SCH ×4 (06:30→22:10)
[2020-09-10] MEDS: NICOTINE 14 MG/24 HOURS TOPICAL PATCH TD SCH (10:34)
[2020-09-10] MEDS: PRENATAL VITAMINS W/ FOLIC ACID TABLET (FP) PO SCH (10:34)
[2020-09-10] MEDS: NICOTINE POLACRILEX 2 MG GUM BUC PRN (10:36)
[2020-09-10] MEDS: MELATONIN 5 MG TABLETS PO SCH (22:10)
[2020-09-10] MEDS: THIAMINE HCL 100 MG TABLET (FP) PO SCH (22:10)
[2020-09-11] MEDS ORDERED: LORazepam 0.5 MG TABLET PO ONE (05:00)
[2020-09-11] MEDS: hydrOXYzine PAMOATE 25 MG CAPSULE (FP) PO PRN (05:25)
[2020-09-11 07:32] VITALS: TEMP 96.9
[2020-09-11 09:03] VITALS: BP 149/85; PULSE 65
[2020-09-11] MEDS: PRENATAL VITAMINS W/ FOLIC ACID TABLET (FP) PO SCH (10:21)
[2020-09-11] MEDS: NICOTINE 14 MG/24 HOURS TOPICAL PATCH TD SCH (10:21)
== END 2020-09-11 09:21 | disposition home or self-care (01) | DRG 774 ==
LOC: YASAS 12:56 → Y3N 16:58
PROVIDERS: ADMIT Allergy & Immunology; ATTEND Allergy & Immunology
PROC: HZ2ZZZZ Detoxification Services for Substance Abuse Treatment (ICD-10-PCS; principal; 2020-09-07)
DX: F10.230 Alcohol dependence with withdrawal, uncomplicated (principal); F14.20 Cocaine dependence, uncomplicated; F17.210 Nicotine dependence, cigarettes, uncomplicated; F19.280 Other psychoactive substance dependence with psychoactive substance-induced anxiety disorder; I10 Essential (primary) hypertension; J45.20 Mild intermittent asthma, uncomplicated; R76.11 Nonspecific reaction to tuberculin skin test without active tuberculosis
CPT/HCPCS: 36415; 71046-TC-FY; 80053; 81003; 85027; 86780; 93005; 93010

== ENCOUNTER 2021-01-10 12:02 | Inpatient (IN) | payer OTHER ==
[2021-01-10 14:49] VITALS: BMI 23.5
[2021-01-10] MEDS ORDERED: MENTHOL/PHENOL 1 EACH UD MM PRN (14:51)
[2021-01-10] MEDS ORDERED: BISMUTH SUBSALICYLATE 262 MG/15 ML BTL PO PRN (14:51)
[2021-01-10] MEDS ORDERED: METHOCARBAMOL 500 MG TABLET PO PRN (14:51)
[2021-01-10] MEDS ORDERED: MAG HYDROX/AL HYDROX/SIMETH 30 ML UNIT-DOSE CUP PO PRN (14:51)
[2021-01-10] MEDS ORDERED: ONDANSETRON *ODT* 4 MG TABLET SL PRN (14:51)
[2021-01-10] MEDS ORDERED: ACETAMINOPHEN 325 MG TABLET (FP) PO PRN ×2 (14:51)
[2021-01-10] MEDS ORDERED: IBUPROFEN 400 MG TABLET (FP) PO PRN (14:51)
[2021-01-10] MEDS ORDERED: MAGNESIUM HYDROX 2400MG/30ML ORAL SUSPENSION 30 ML CUP PO PRN (14:51)
[2021-01-10] MEDS ORDERED: MAGNESIUM CITRATE 300 ML BOTTLE PO PRN (14:51)
[2021-01-10] MEDS ORDERED: NICOTINE 10 MG CARTRIDGE (INHALER) IH PRN (14:51)
[2021-01-10] MEDS: hydrOXYzine PAMOATE 25 MG CAPSULE (FP) PO SCH ×2 (17:50→22:29)
[2021-01-10] MEDS: PRENATAL VITAMINS W/ FOLIC ACID TABLET (FP) PO SCH (17:50)
[2021-01-10] MEDS ORDERED: THIAMINE HCL 100 MG TABLET (FP) PO SCH (22:00)
[2021-01-10] MEDS ORDERED: MELATONIN 5 MG TABLETS PO SCH (22:00)
[2021-01-11] MEDS: hydrOXYzine PAMOATE 25 MG CAPSULE (FP) PO SCH ×3 (06:56→15:06)
[2021-01-11] MEDS: PRENATAL VITAMINS W/ FOLIC ACID TABLET (FP) PO SCH (10:13)
[2021-01-11 10:54] LABS: HEMATOCRIT 39.5 % (35.4-49); HEMOGLOBIN 13.1 GM/dL (11.7-16.9); MCH 30.5 pg (25.7-33.7); MCHC 33.1 g/dl (32.0-35.9); MEAN CELL VOLUME 91.9 fl (80-96); MEAN PLT VOLUME 8.4 fl (7.5-11.1); PLATELET COUNT 221 10^3/uL (134-434); RDW 14.3 % (11.9-15.9); WHITE BLOOD COUNT 3.5 K/mm3 (4.0-10.0)
[2021-01-11 11:03] LABS: ALBUMIN 3.2 g/dl (3.4-5.0); CALCIUM 8.8 mg/dL (8.5-10.1)
[2021-01-11 11:04] LABS: BLOOD UREA NITROGEN 18.2 mg/dL (7-18)
[2021-01-11 11:06] LABS: BILIRUBIN,TOTAL 0.7 mg/dL (0.2-1)
[2021-01-11 11:08] LABS: TOT PROT 6.6 g/dl (6.4-8.2)
[2021-01-11 12:45] VITALS: BP 125/60; PULSE 74; TEMP 97.7
== END 2021-01-11 14:14 | disposition other institution (70) | DRG 774 ==
LOC: YASAS 12:02 → UNDOADMIN 15:28 → Y3N 15:28
PROVIDERS: ADMIT Allergy & Immunology; ATTEND Allergy & Immunology
PROC: HZ2ZZZZ Detoxification Services for Substance Abuse Treatment (ICD-10-PCS; principal; 2021-01-10)
DX: F10.230 Alcohol dependence with withdrawal, uncomplicated (principal); F14.20 Cocaine dependence, uncomplicated; F17.210 Nicotine dependence, cigarettes, uncomplicated; F19.280 Other psychoactive substance dependence with psychoactive substance-induced anxiety disorder; I10 Essential (primary) hypertension; J45.909 Unspecified asthma, uncomplicated; I83.93 Asymptomatic varicose veins of bilateral lower extremities; Z86.11 Personal history of tuberculosis; Z56.0 Unemployment, unspecified
CPT/HCPCS: 36415; 80053; 85027; 86780; C9803; U0003; U0005

== ENCOUNTER 2021-01-11 12:16 | Inpatient (IN) | payer OTHER ==
[2021-01-11] MEDS ORDERED: LOPERAMIDE HCL 2 MG CAPSULE PO PRN (15:14)
[2021-01-11] MEDS ORDERED: MAGNESIUM HYDROX 2400MG/30ML ORAL SUSPENSION 30 ML CUP PO PRN (15:14)
[2021-01-11] MEDS ORDERED: MENTHOL/PHENOL 1 EACH UD MM PRN (15:14)
[2021-01-11] MEDS ORDERED: ACETAMINOPHEN 325 MG TABLET (FP) PO PRN (15:14)
[2021-01-11] MEDS ORDERED: NICOTINE 10 MG CARTRIDGE (INHALER) IH PRN (15:14)
[2021-01-11] MEDS ORDERED: MAG HYDROX/AL HYDROX/SIMETH 30 ML UNIT-DOSE CUP PO PRN (15:14)
[2021-01-11] MEDS ORDERED: guaiFENesin 200 MG/10 ML 10 ML UNIT-DOSE CUPS PO PRN (15:14)
[2021-01-11] MEDS ORDERED: MAGNESIUM CITRATE 300 ML BOTTLE PO PRN (15:14)
[2021-01-11] MEDS ORDERED: P-EPHED 60MG/TRIPROLIDI 2.5MG TABLET PO PRN (15:14)
[2021-01-11] MEDS ORDERED: cloNIDine HCL 0.1 MG TABLET PO ONE (15:19)
[2021-01-11] MEDS: hydrOXYzine PAMOATE 25 MG CAPSULE (FP) PO PRN (21:36)
[2021-01-11] MEDS: MELATONIN 5 MG TABLETS PO SCH (21:36)
[2021-01-11] MEDS: THIAMINE HCL 100 MG TABLET (FP) PO SCH (21:36)
[2021-01-11] MEDS: cloNIDine HCL 0.1 MG TABLET PO SCH (23:21)
[2021-01-12] MEDS: cloNIDine HCL 0.1 MG TABLET PO SCH ×2 (09:51→21:21)
[2021-01-12] MEDS: PRENATAL VITAMINS W/ FOLIC ACID TABLET (FP) PO SCH (09:51)
[2021-01-12] MEDS: NICOTINE 7 MG/24 HOURS TOPICAL PATCH TD SCH (09:51)
[2021-01-12] MEDS: THIAMINE HCL 100 MG TABLET (FP) PO SCH (21:20)
[2021-01-12] MEDS: MELATONIN 5 MG TABLETS PO SCH (21:21)
[2021-01-13] MEDS: cloNIDine HCL 0.1 MG TABLET PO SCH ×2 (09:59→21:24)
[2021-01-13] MEDS: PRENATAL VITAMINS W/ FOLIC ACID TABLET (FP) PO SCH (09:59)
[2021-01-13] MEDS: NICOTINE 7 MG/24 HOURS TOPICAL PATCH TD SCH (09:59)
[2021-01-13] MEDS: IBUPROFEN 400 MG TABLET (FP) PO PRN (13:10)
[2021-01-13] MEDS: MELATONIN 5 MG TABLETS PO SCH (21:24)
[2021-01-13] MEDS: THIAMINE HCL 100 MG TABLET (FP) PO SCH (21:24)
[2021-01-14] MEDS: NICOTINE 7 MG/24 HOURS TOPICAL PATCH TD SCH (09:59)
[2021-01-14] MEDS: PRENATAL VITAMINS W/ FOLIC ACID TABLET (FP) PO SCH (09:59)
[2021-01-14] MEDS: cloNIDine HCL 0.1 MG TABLET PO SCH ×2 (09:59→22:09)
[2021-01-14 10:07] LABS: SARS-CoV-2 NAA Not Detected (Not Detected)
[2021-01-14] MEDS: NICOTINE POLACRILEX 2 MG GUM BC PRN (11:03)
[2021-01-14] MEDS: hydrOXYzine PAMOATE 25 MG CAPSULE (FP) PO PRN (22:09)
[2021-01-14] MEDS: THIAMINE HCL 100 MG TABLET (FP) PO SCH (22:09)
[2021-01-14] MEDS: MELATONIN 5 MG TABLETS PO SCH (22:09)
[2021-01-15] MEDS: PRENATAL VITAMINS W/ FOLIC ACID TABLET (FP) PO SCH (10:15)
[2021-01-15] MEDS: NICOTINE 7 MG/24 HOURS TOPICAL PATCH TD SCH (10:15)
[2021-01-15] MEDS: cloNIDine HCL 0.1 MG TABLET PO SCH ×2 (10:15→22:30)
[2021-01-15] MEDS: MELATONIN 5 MG TABLETS PO SCH (22:30)
[2021-01-15] MEDS: THIAMINE HCL 100 MG TABLET (FP) PO SCH (22:30)
[2021-01-16] MEDS: PRENATAL VITAMINS W/ FOLIC ACID TABLET (FP) PO SCH (10:05)
[2021-01-16] MEDS: NICOTINE 7 MG/24 HOURS TOPICAL PATCH TD SCH (10:05)
[2021-01-16] MEDS: cloNIDine HCL 0.1 MG TABLET PO SCH ×2 (10:05→21:24)
[2021-01-16] MEDS: NICOTINE POLACRILEX 2 MG GUM BC PRN (10:06)
[2021-01-16] MEDS: MELATONIN 5 MG TABLETS PO SCH (21:24)
[2021-01-16] MEDS: THIAMINE HCL 100 MG TABLET (FP) PO SCH (21:24)
[2021-01-17] MEDS: cloNIDine HCL 0.1 MG TABLET PO SCH ×2 (09:50→21:54)
[2021-01-17] MEDS: NICOTINE 7 MG/24 HOURS TOPICAL PATCH TD SCH (09:51)
[2021-01-17] MEDS: NICOTINE POLACRILEX 2 MG GUM BC PRN (09:51)
[2021-01-17] MEDS: PRENATAL VITAMINS W/ FOLIC ACID TABLET (FP) PO SCH (09:51)
[2021-01-17] MEDS: MELATONIN 5 MG TABLETS PO SCH (21:54)
[2021-01-17] MEDS: THIAMINE HCL 100 MG TABLET (FP) PO SCH (21:54)
[2021-01-17] MEDS: hydrOXYzine PAMOATE 25 MG CAPSULE (FP) PO PRN (21:54)
[2021-01-18] MEDS: PRENATAL VITAMINS W/ FOLIC ACID TABLET (FP) PO SCH (09:47)
[2021-01-18] MEDS: cloNIDine HCL 0.1 MG TABLET PO SCH ×2 (09:47→21:23)
[2021-01-18] MEDS: NICOTINE 7 MG/24 HOURS TOPICAL PATCH TD SCH (09:47)
[2021-01-18] MEDS: NICOTINE POLACRILEX 2 MG GUM BC PRN ×2 (09:48→21:51)
[2021-01-18] MEDS: THIAMINE HCL 100 MG TABLET (FP) PO SCH (21:23)
[2021-01-18] MEDS: MELATONIN 5 MG TABLETS PO SCH (21:24)
[2021-01-19] MEDS: cloNIDine HCL 0.1 MG TABLET PO SCH ×2 (10:05→21:21)
[2021-01-19] MEDS: IBUPROFEN 400 MG TABLET (FP) PO PRN (10:05)
[2021-01-19] MEDS: NICOTINE 7 MG/24 HOURS TOPICAL PATCH TD SCH (10:07)
[2021-01-19] MEDS: PRENATAL VITAMINS W/ FOLIC ACID TABLET (FP) PO SCH (10:09)
[2021-01-19] MEDS: MELATONIN 5 MG TABLETS PO SCH (21:21)
[2021-01-19] MEDS: THIAMINE HCL 100 MG TABLET (FP) PO SCH (21:21)
[2021-01-19] MEDS: METHYL SALICYLATE/MENTHOL OINT 30 GM TUBE TP SCH (21:23)
[2021-01-19] MEDS ORDERED: PT OWN MED DRAWER 7, Y5N ONE (21:24)
[2021-01-19] MEDS: NICOTINE POLACRILEX 2 MG GUM BC PRN (21:26)
[2021-01-20] MEDS ORDERED: PT OWN MED DRAWER 7, Y5N ONE (07:19)
[2021-01-20] MEDS: cloNIDine HCL 0.1 MG TABLET PO SCH ×2 (09:51→21:12)
[2021-01-20] MEDS: PRENATAL VITAMINS W/ FOLIC ACID TABLET (FP) PO SCH (09:51)
[2021-01-20] MEDS: NICOTINE 7 MG/24 HOURS TOPICAL PATCH TD SCH (09:52)
[2021-01-20] MEDS: NICOTINE POLACRILEX 2 MG GUM BC PRN (09:52)
[2021-01-20] MEDS: METHYL SALICYLATE/MENTHOL OINT 30 GM TUBE TP SCH ×2 (11:29→21:13)
[2021-01-20] MEDS: MELATONIN 5 MG TABLETS PO SCH (21:12)
[2021-01-20] MEDS: THIAMINE HCL 100 MG TABLET (FP) PO SCH (21:12)
[2021-01-21] MEDS: METHYL SALICYLATE/MENTHOL OINT 30 GM TUBE TP SCH ×2 (09:46→22:46)
[2021-01-21] MEDS: NICOTINE 7 MG/24 HOURS TOPICAL PATCH TD SCH (09:47)
[2021-01-21] MEDS: PRENATAL VITAMINS W/ FOLIC ACID TABLET (FP) PO SCH (09:49)
[2021-01-21] MEDS: cloNIDine HCL 0.1 MG TABLET PO SCH ×2 (09:49→21:18)
[2021-01-21] MEDS: NICOTINE POLACRILEX 2 MG GUM BC PRN (09:50)
[2021-01-21] MEDS ORDERED: PT OWN MED DRAWER 7, Y5N ONE (11:21)
[2021-01-21] MEDS: THIAMINE HCL 100 MG TABLET (FP) PO SCH (21:18)
[2021-01-21] MEDS: MELATONIN 5 MG TABLETS PO SCH (21:18)
[2021-01-22] MEDS: PRENATAL VITAMINS W/ FOLIC ACID TABLET (FP) PO SCH (09:46)
[2021-01-22] MEDS: cloNIDine HCL 0.1 MG TABLET PO SCH ×2 (09:46→21:17)
[2021-01-22] MEDS: NICOTINE 7 MG/24 HOURS TOPICAL PATCH TD SCH (09:47)
[2021-01-22] MEDS: METHYL SALICYLATE/MENTHOL OINT 30 GM TUBE TP SCH ×2 (09:47→21:18)
[2021-01-22] MEDS: MELATONIN 5 MG TABLETS PO SCH (21:17)
[2021-01-22] MEDS: THIAMINE HCL 100 MG TABLET (FP) PO SCH (21:17)
[2021-01-22] MEDS: NICOTINE POLACRILEX 2 MG GUM BC PRN (21:18)
[2021-01-23 07:10] VITALS: TEMP 97.3
[2021-01-23 08:57] VITALS: BP 160/89; PULSE 72
[2021-01-23] MEDS: cloNIDine HCL 0.1 MG TABLET PO SCH (09:01)
[2021-01-23] MEDS: PRENATAL VITAMINS W/ FOLIC ACID TABLET (FP) PO SCH (09:01)
[2021-01-23] MEDS: NICOTINE 7 MG/24 HOURS TOPICAL PATCH TD SCH (09:01)
[2021-01-23] MEDS: METHYL SALICYLATE/MENTHOL OINT 30 GM TUBE TP SCH (09:02)
== END 2021-01-23 09:03 | disposition home or self-care (01) | DRG 772 ==
LOC: YASAS 12:16 → Y3E 12:17
PROVIDERS: ADMIT Allergy & Immunology; ATTEND Allergy & Immunology
PROC: HZ42ZZZ Group Counseling for Substance Abuse Treatment, Cognitive-Behavioral (ICD-10-PCS; principal; 2021-01-11)
DX: F10.20 Alcohol dependence, uncomplicated (principal); F14.20 Cocaine dependence, uncomplicated; F17.210 Nicotine dependence, cigarettes, uncomplicated; F19.280 Other psychoactive substance dependence with psychoactive substance-induced anxiety disorder; I10 Essential (primary) hypertension; J45.909 Unspecified asthma, uncomplicated; M25.562 Pain in left knee; G89.29 Other chronic pain; Z86.11 Personal history of tuberculosis
CPT/HCPCS: C9803; J0735; U0003; U0005

== ENCOUNTER 2021-04-18 14:41 | Inpatient (IN) | payer MEDICARE, OTHER ==
[2021-04-18] MEDS ORDERED: chlordiazePOXIDE HCL 25 MG CAPSULE PO PRN (15:11)
[2021-04-18] MEDS ORDERED: MENTHOL/PHENOL 1 EACH UD MM PRN (15:11)
[2021-04-18] MEDS ORDERED: ONDANSETRON *ODT* 4 MG TABLET SL PRN (15:11)
[2021-04-18] MEDS ORDERED: MAG HYDROX/AL HYDROX/SIMETH 30 ML UNIT-DOSE CUP PO PRN (15:11)
[2021-04-18] MEDS ORDERED: NICOTINE 10 MG CARTRIDGE (INHALER) IH PRN (15:11)
[2021-04-18] MEDS ORDERED: IBUPROFEN 400 MG TABLET (FP) PO PRN (15:11)
[2021-04-18] MEDS ORDERED: METHOCARBAMOL 500 MG TABLET PO PRN (15:11)
[2021-04-18] MEDS ORDERED: MAGNESIUM CITRATE 300 ML BOTTLE PO PRN (15:11)
[2021-04-18] MEDS ORDERED: ACETAMINOPHEN 325 MG TABLET (FP) PO PRN ×2 (15:11)
[2021-04-18] MEDS ORDERED: BISMUTH SUBSALICYLATE 262 MG/15 ML BTL PO PRN (15:11)
[2021-04-18] MEDS ORDERED: MAGNESIUM HYDROX 2400MG/30ML ORAL SUSPENSION 30 ML CUP PO PRN (15:11)
[2021-04-18 16:58] VITALS: BMI 21.2
[2021-04-18] MEDS ORDERED: PNEUMOC 13-VAL CONJ-DIP CRM/PF 0.5 ML DISP.SYRIN IM ONE (18:05)
[2021-04-18] MEDS: chlordiazePOXIDE HCL 25 MG CAPSULE PO SCH ×2 (18:27→22:32)
[2021-04-18] MEDS: PRENATAL VITAMINS W/ FOLIC ACID TABLET (FP) PO SCH (18:27)
[2021-04-18] MEDS: NICOTINE 7 MG/24 HOURS TOPICAL PATCH TD SCH (18:59)
[2021-04-18] MEDS: ALBUTEROL SO4 HFA INHALER IH PRN (19:04)
[2021-04-18] MEDS: MELATONIN 5 MG TABLETS PO SCH (22:32)
[2021-04-18] MEDS: THIAMINE HCL 100 MG TABLET (FP) PO SCH (22:32)
[2021-04-19] MEDS: chlordiazePOXIDE HCL 25 MG CAPSULE PO SCH ×4 (05:19→22:25)
[2021-04-19] MEDS: PRENATAL VITAMINS W/ FOLIC ACID TABLET (FP) PO SCH (10:28)
[2021-04-19] MEDS: ALBUTEROL SO4 HFA INHALER IH PRN ×2 (10:29→17:54)
[2021-04-19] MEDS: NICOTINE 7 MG/24 HOURS TOPICAL PATCH TD SCH (10:29)
[2021-04-19 10:39] LABS: HEMATOCRIT 40.7 % (35.4-49); HEMOGLOBIN 12.9 GM/dL (11.7-16.9); MCH 29.1 pg (25.7-33.7); MCHC 31.8 g/dl (32.0-35.9); MEAN CELL VOLUME 91.6 fl (80-96); MEAN PLT VOLUME 8.8 fl (7.5-11.1); PLATELET COUNT 201 10^3/uL (134-434); RBC 4.44 M/mm3 (4.00-5.60)
[2021-04-19 10:51] LABS: ALBUMIN 3.8 g/dl (3.4-5.0); BLOOD UREA NITROGEN 15.5 mg/dL (7-18)
[2021-04-19 10:52] LABS: BILIRUBIN,TOTAL 0.6 mg/dL (0.2-1); CALCIUM 9.1 mg/dL (8.5-10.1); TOT PROT 6.9 g/dl (6.4-8.2)
[2021-04-19 10:54] LABS: CREATININE 1.2 mg/dL (0.55-1.3)
[2021-04-19] MEDS ORDERED: PNEUMOC 13-VAL CONJ-DIP CRM/PF 0.5 ML DISP.SYRIN IM ONE (12:00)
[2021-04-19] MEDS: guaiFENesin 200 MG/10 ML 10 ML UNIT-DOSE CUPS PO PRN (19:58)
[2021-04-19] MEDS: MELATONIN 5 MG TABLETS PO SCH (22:24)
[2021-04-19] MEDS: THIAMINE HCL 100 MG TABLET (FP) PO SCH (22:24)
[2021-04-20] MEDS: ALBUTEROL SO4 HFA INHALER IH PRN (01:18)
[2021-04-20] MEDS: guaiFENesin 200 MG/10 ML 10 ML UNIT-DOSE CUPS PO PRN ×2 (02:26→10:38)
[2021-04-20] MEDS: chlordiazePOXIDE HCL 25 MG CAPSULE PO SCH ×4 (05:18→23:01)
[2021-04-20] MEDS: hydrOXYzine PAMOATE 25 MG CAPSULE (FP) PO PRN ×2 (05:19→10:38)
[2021-04-20] MEDS: NICOTINE 7 MG/24 HOURS TOPICAL PATCH TD SCH (10:37)
[2021-04-20] MEDS: PRENATAL VITAMINS W/ FOLIC ACID TABLET (FP) PO SCH (10:40)
[2021-04-20 14:19] VITALS: BP 142/80; PULSE 70; TEMP 97.7
[2021-04-20] MEDS: MELATONIN 5 MG TABLETS PO SCH (23:00)
[2021-04-20] MEDS: THIAMINE HCL 100 MG TABLET (FP) PO SCH (23:00)
[2021-04-21] MEDS ORDERED: chlordiazePOXIDE HCL 10 MG CAPSULE PO PRN
[2021-04-21] MEDS ORDERED: chlordiazePOXIDE HCL 10 MG CAPSULE PO SCH (05:00)
[2021-04-22] MEDS ORDERED: chlordiazePOXIDE HCL 10 MG CAPSULE PO SCH (05:00)
[2021-04-23] MEDS ORDERED: chlordiazePOXIDE HCL 10 MG CAPSULE PO ONE (05:00)
== END 2021-04-21 00:43 | disposition short-term general hospital (02) | DRG 897 ==
LOC: YASAS 14:41 → Y6N 16:55
PROVIDERS: ADMIT Allergy & Immunology; ATTEND Allergy & Immunology
PROC: HZ2ZZZZ Detoxification Services for Substance Abuse Treatment (ICD-10-PCS; principal; 2021-04-18)
DX: F10.230 Alcohol dependence with withdrawal, uncomplicated (principal); F14.20 Cocaine dependence, uncomplicated; F13.20 Sedative, hypnotic or anxiolytic dependence, uncomplicated; F17.210 Nicotine dependence, cigarettes, uncomplicated; I10 Essential (primary) hypertension; J45.909 Unspecified asthma, uncomplicated; R05.8 Other specified cough; Z86.11 Personal history of tuberculosis; Z91.018 Allergy to other foods
CPT/HCPCS: 36415; 71045-TC-FY; 80053; 82962; 85027; 86780; 90670; C9803; U0003; U0005

== ENCOUNTER 2021-04-20 12:55 | Observation (INO) | payer MEDICARE, OTHER ==
[2021-04-20 14:43] VITALS: BMI 22.9
[2021-04-20] MEDS ORDERED: ACETAMINOPHEN 325 MG TABLET (FP) PO PRN (18:17)
[2021-04-20] MEDS ORDERED: ALBUTEROL SO4 HFA INHALER IH PRN (18:19)
[2021-04-20] MEDS ORDERED: chlordiazePOXIDE HCL 25 MG CAPSULE PO PRN (18:19)
[2021-04-20] MEDS ORDERED: chlordiazePOXIDE HCL 10 MG CAPSULE PO SCH (18:30)
[2021-04-20] MEDS ORDERED: chlordiazePOXIDE HCL 25 MG CAPSULE ONE ×2 (18:43→23:16)
[2021-04-20] MEDS ORDERED: chlordiazePOXIDE HCL 10 MG CAPSULE ONE (18:44)
[2021-04-20] MEDS: chlordiazePOXIDE HCL 25 MG CAPSULE PO SCH ×2 (18:46→23:23)
[2021-04-20 22:37] LABS: BASO % 0.4 % (0-2.0); EOS % 5.7 % (0-4.5); HEMATOCRIT 38.7 % (35.4-49); HEMOGLOBIN 12.4 GM/dL (11.7-16.9); MCH 29.1 pg (25.7-33.7); MEAN PLT VOLUME 8.4 fl (7.5-11.1); MONO % 11.1 % (3.8-10.2); NEUT % 51.8 % (42.8-82.8); PLATELET COUNT 202 10^3/uL (134-434); RBC 4.25 M/mm3 (4.00-5.60); RDW 14.2 % (11.9-15.9); WHITE BLOOD COUNT 5.9 K/mm3 (4.0-10.0)
[2021-04-20 22:58] LABS: ALBUMIN 3.3 g/dl (3.4-5.0); CALCIUM 8.7 mg/dL (8.5-10.1)
[2021-04-20 23:01] LABS: CREATININE 1.1 mg/dL (0.55-1.3)
[2021-04-20 23:03] LABS: BILIRUBIN,TOTAL 0.5 mg/dL (0.2-1); TOT PROT 6.6 g/dl (6.4-8.2)
[2021-04-20 23:52] LABS: HIV INTERPRETATION NEGATIVE (NEGATIVE)
[2021-04-21 00:30] LABS: BLOOD UREA NITROGEN 13.6 mg/dL (7-18)
[2021-04-21 05:05] VITALS: TEMP 97.9
[2021-04-21] MEDS ORDERED: chlordiazePOXIDE HCL 25 MG CAPSULE ONE ×3 (05:19→17:30)
[2021-04-21] MEDS: chlordiazePOXIDE HCL 25 MG CAPSULE PO SCH ×3 (05:26→17:00)
[2021-04-21 06:59] LABS: HEMATOCRIT 40.1 % (35.4-49); HEMOGLOBIN 12.7 GM/dL (11.7-16.9); MCHC 31.7 g/dl (32.0-35.9); MEAN CELL VOLUME 91.6 fl (80-96); MEAN PLT VOLUME 8.4 fl (7.5-11.1); PLATELET COUNT 193 10^3/uL (134-434); RBC 4.37 M/mm3 (4.00-5.60); RDW 14.1 % (11.9-15.9); WHITE BLOOD COUNT 6.2 K/mm3 (4.0-10.0)
[2021-04-21 07:15] LABS: CALCIUM 8.7 mg/dL (8.5-10.1)
[2021-04-21 07:16] LABS: ALBUMIN 3.2 g/dl (3.4-5.0); BLOOD UREA NITROGEN 10.9 mg/dL (7-18); MAGNESIUM 1.4 mg/dL (1.8-2.4)
[2021-04-21 07:19] LABS: PHOSPHOROUS 3.2 mg/dL (2.5-4.9)
[2021-04-21 07:20] LABS: BILIRUBIN,TOTAL 0.7 mg/dL (0.2-1); TOT PROT 6.4 g/dl (6.4-8.2)
[2021-04-21] MEDS ORDERED: MAGNESIUM SULF 50% (8.12 MEQ/2 ML-1 GM VIAL) IVPB ONE (08:00)
[2021-04-21] MEDS ORDERED: MAGNESIUM OXIDE 400 MG TABLET (FP) PO ONE (08:00)
[2021-04-21] MEDS ORDERED: MAGNESIUM SULFATE IN WATER 2 GM/50 ML IVPB IVPB ONE (08:21)
[2021-04-21] MEDS ORDERED: MAGNESIUM OXIDE 400 MG TABLET (FP) ONE (08:21)
[2021-04-21] MEDS ORDERED: ENOXAPARIN NA (PORCINE) 40 MG/0.4 ML DISP.SYRIN SQ ONE (08:22)
[2021-04-21] MEDS ORDERED: DEXAMETHASONE SOD PHOSPHATE 4 MG/1 ML VIAL IVPUSH SCH (10:00)
[2021-04-21] MEDS ORDERED: ENOXAPARIN NA (PORCINE) 40 MG/0.4 ML DISP.SYRIN SQ SCH (10:00)
[2021-04-21] MEDS ORDERED: DEXAMETHASONE SOD PHOSPHATE 10 MG/1 ML VIAL ONE (10:34)
[2021-04-21] MEDS ORDERED: REMDESIVIR 200 MG in SODIUM CHLORIDE 250 ML IVPB ONE (12:00)
[2021-04-21 17:34] VITALS: BP 124/80; PULSE 66
[2021-04-22] MEDS ORDERED: chlordiazePOXIDE HCL 25 MG CAPSULE PO SCH (05:00)
[2021-04-23] MEDS ORDERED: chlordiazePOXIDE HCL 10 MG CAPSULE PO PRN
[2021-04-24] MEDS ORDERED: chlordiazePOXIDE HCL 10 MG CAPSULE PO ONE (05:00)
[2021-04-24] MEDS ORDERED: chlordiazePOXIDE HCL 10 MG CAPSULE PO SCH (18:30)
== END 2021-04-21 19:10 | disposition other institution (70) ==
LOC: JER 12:55 → INTOOBSV 16:49 → JERBED 16:49 → UNDOADMOB 16:49 → OBSVTOIN 04-21 11:27 → INTOOBSV 04-21 11:27 → JERBED 04-21 15:33
PROVIDERS: ADMIT Internal Medicine; ATTEND Nurse Practitioner Acute Care
PROC: 3E023GC Introduction of Other Therapeutic Substance into Muscle, Percutaneous Approach (ICD-10-PCS; principal; 2021-04-21)
PROC: 3E033GC Introduction of Other Therapeutic Substance into Peripheral Vein, Percutaneous Approach (ICD-10-PCS; 2021-04-21)
DX: A15.0 Tuberculosis of lung (principal); U07.1 COVID-19; F19.980 Other psychoactive substance use, unspecified with psychoactive substance-induced anxiety disorder; F10.20 Alcohol dependence, uncomplicated; F14.20 Cocaine dependence, uncomplicated; J45.909 Unspecified asthma, uncomplicated; F17.200 Nicotine dependence, unspecified, uncomplicated; I10 Essential (primary) hypertension; Z29.9 Encounter for prophylactic measures, unspecified; Z91.018 Allergy to other foods
CPT/HCPCS: 36415; 71250-TC; 80053; 83735; 84100; 85025; 85027; 86480; 87389; 87804; 87807; 87899; 93005; 93010; 96365; 96372; 96375; 99285-25; C9399; C9803; G0378; U0003; U0005

== ENCOUNTER 2021-04-21 20:35 | Inpatient (IN) | payer MEDICARE, OTHER ==
[2021-04-21] MEDS ORDERED: MENTHOL/PHENOL 1 EACH UD MM PRN (20:52)
[2021-04-21] MEDS ORDERED: IBUPROFEN 400 MG TABLET (FP) PO PRN (20:52)
[2021-04-21] MEDS ORDERED: ONDANSETRON *ODT* 4 MG TABLET SL PRN (20:52)
[2021-04-21] MEDS ORDERED: MAGNESIUM CITRATE 300 ML BOTTLE PO PRN (20:52)
[2021-04-21] MEDS ORDERED: chlordiazePOXIDE HCL 25 MG CAPSULE PO PRN (20:52)
[2021-04-21] MEDS ORDERED: MAGNESIUM HYDROX 2400MG/30ML ORAL SUSPENSION 30 ML CUP PO PRN (20:52)
[2021-04-21] MEDS ORDERED: ACETAMINOPHEN 325 MG TABLET (FP) PO PRN ×2 (20:52)
[2021-04-21] MEDS ORDERED: BISMUTH SUBSALICYLATE 524 MG/30 ML PO PRN (20:52)
[2021-04-21] MEDS ORDERED: NICOTINE 10 MG CARTRIDGE (INHALER) IH PRN (20:52)
[2021-04-21] MEDS ORDERED: MAG HYDROX/AL HYDROX/SIMETH 30 ML UNIT-DOSE CUP PO PRN (20:52)
[2021-04-21] MEDS ORDERED: ALBUTEROL SO4 HFA INHALER IH PRN (21:01)
[2021-04-21] MEDS ORDERED: chlordiazePOXIDE HCL 10 MG CAPSULE PO PRN (21:14)
[2021-04-21 21:30] VITALS: BMI 22.9
[2021-04-21] MEDS ORDERED: chlordiazePOXIDE HCL 25 MG CAPSULE PO SCH (23:00)
[2021-04-21] MEDS: THIAMINE HCL 100 MG TABLET (FP) PO SCH (23:29)
[2021-04-22] MEDS: guaiFENesin 200 MG/10 ML 10 ML UNIT-DOSE CUPS PO SCH ×3 (06:50→22:54)
[2021-04-22] MEDS: chlordiazePOXIDE HCL 10 MG CAPSULE PO SCH ×4 (06:58→22:55)
[2021-04-22] MEDS: PRENATAL VITAMINS W/ FOLIC ACID TABLET (FP) PO SCH (11:39)
[2021-04-22] MEDS: METHOCARBAMOL 500 MG TABLET PO PRN ×2 (11:39→22:54)
[2021-04-22] MEDS: THIAMINE HCL 100 MG TABLET (FP) PO SCH (22:54)
[2021-04-23] MEDS: chlordiazePOXIDE HCL 10 MG CAPSULE PO SCH ×2 (07:40→17:36)
[2021-04-23] MEDS: guaiFENesin 200 MG/10 ML 10 ML UNIT-DOSE CUPS PO SCH ×3 (07:41→22:52)
[2021-04-23] MEDS: PRENATAL VITAMINS W/ FOLIC ACID TABLET (FP) PO SCH (10:31)
[2021-04-23] MEDS: MELATONIN 5 MG TABLETS PO PRN (22:50)
[2021-04-23] MEDS: THIAMINE HCL 100 MG TABLET (FP) PO SCH (22:50)
[2021-04-23] MEDS: METHOCARBAMOL 500 MG TABLET PO PRN (22:51)
[2021-04-24] MEDS: guaiFENesin 200 MG/10 ML 10 ML UNIT-DOSE CUPS PO SCH ×3 (06:26→22:03)
[2021-04-24] MEDS: PRENATAL VITAMINS W/ FOLIC ACID TABLET (FP) PO SCH (10:51)
[2021-04-24] MEDS: METHOCARBAMOL 500 MG TABLET PO PRN (18:39)
[2021-04-24] MEDS: THIAMINE HCL 100 MG TABLET (FP) PO SCH (22:03)
[2021-04-24] MEDS: MELATONIN 5 MG TABLETS PO PRN (22:10)
[2021-04-25] MEDS ORDERED: chlordiazePOXIDE HCL 10 MG CAPSULE PO ONE (05:00)
[2021-04-25 09:47] VITALS: BP 135/78; PULSE 97; TEMP 97.1
== END 2021-04-25 09:30 | disposition home or self-care (01) | DRG 897 ==
LOC: YASAS 20:35 → Y6N 20:55
PROVIDERS: ADMIT Allergy & Immunology; ATTEND Allergy & Immunology
PROC: HZ2ZZZZ Detoxification Services for Substance Abuse Treatment (ICD-10-PCS; principal; 2021-04-21)
DX: F10.230 Alcohol dependence with withdrawal, uncomplicated (principal); F14.20 Cocaine dependence, uncomplicated; F13.230 Sedative, hypnotic or anxiolytic dependence with withdrawal, uncomplicated; J45.909 Unspecified asthma, uncomplicated; Z86.11 Personal history of tuberculosis; Z86.16 Personal history of COVID-19; Z91.018 Allergy to other foods
CPT/HCPCS: C9803; U0003; U0005

== ENCOUNTER 2021-08-22 14:58 | Inpatient (IN) | payer OTHER ==
[2021-08-22 15:18] VITALS: BMI 23.7
[2021-08-22] MEDS ORDERED: LOPERAMIDE HCL 2 MG CAPSULE PO PRN (15:28)
[2021-08-22] MEDS ORDERED: BENZOCAINE/MENTHOL (CHLORASEPTIC ) LOZENGE MM PRN (15:28)
[2021-08-22] MEDS ORDERED: IBUPROFEN 600 MG TABLET (FP) PO PRN (15:28)
[2021-08-22] MEDS ORDERED: METHOCARBAMOL 500 MG TABLET PO PRN (15:28)
[2021-08-22] MEDS ORDERED: ACETAMINOPHEN 325 MG TABLET (FP) PO PRN ×2 (15:28)
[2021-08-22] MEDS ORDERED: chlordiazePOXIDE HCL 25 MG CAPSULE PO PRN (15:28)
[2021-08-22] MEDS ORDERED: MAG HYDROX/AL HYDROX/SIMETH 30 ML UNIT-DOSE CUP PO PRN (15:28)
[2021-08-22] MEDS ORDERED: BISMUTH SUBSALICYLATE 524 MG/30 ML PO PRN (15:28)
[2021-08-22] MEDS ORDERED: ONDANSETRON *ODT* 4 MG TABLET SL PRN (15:28)
[2021-08-22] MEDS ORDERED: NICOTINE 10 MG CARTRIDGE (INHALER) IH PRN (15:28)
[2021-08-22] MEDS ORDERED: IBUPROFEN 400 MG TABLET (FP) PO PRN (15:28)
[2021-08-22] MEDS ORDERED: MAGNESIUM HYDROX 2400MG/30ML ORAL SUSPENSION 30 ML CUP PO PRN (15:28)
[2021-08-22] MEDS ORDERED: DICYCLOMINE HCL 10 MG CAPSULE PO PRN (15:28)
[2021-08-22] MEDS ORDERED: MAGNESIUM CITRATE 300 ML BOTTLE PO PRN (15:28)
[2021-08-22] MEDS: NICOTINE 7 MG/24 HOURS TOPICAL PATCH TD SCH (17:47)
[2021-08-22] MEDS: PRENATAL VITAMINS W/ FOLIC ACID TABLET (FP) PO SCH (18:17)
[2021-08-22] MEDS: hydrOXYzine PAMOATE 25 MG CAPSULE (FP) PO SCH ×2 (18:18→22:30)
[2021-08-22] MEDS: THIAMINE HCL 100 MG TABLET (FP) PO SCH (22:30)
[2021-08-22] MEDS: chlordiazePOXIDE HCL 25 MG CAPSULE PO SCH (22:31)
[2021-08-22] MEDS: MELATONIN 5 MG TABLETS PO SCH (22:31)
[2021-08-23] MEDS: hydrOXYzine PAMOATE 25 MG CAPSULE (FP) PO SCH ×5 (05:47→22:30)
[2021-08-23] MEDS: chlordiazePOXIDE HCL 25 MG CAPSULE PO SCH ×4 (05:47→22:30)
[2021-08-23] MEDS: PRENATAL VITAMINS W/ FOLIC ACID TABLET (FP) PO SCH (10:03)
[2021-08-23] MEDS: NICOTINE 7 MG/24 HOURS TOPICAL PATCH TD SCH (10:07)
[2021-08-23 10:13] LABS: HEMATOCRIT 38.8 % (35.4-49); HEMOGLOBIN 13.1 GM/dL (11.7-16.9); MCH 30.7 pg (25.7-33.7); MCHC 33.9 g/dl (32.0-35.9); MEAN CELL VOLUME 90.7 fl (80-96); MEAN PLT VOLUME 7.9 fl (7.5-11.1); PLATELET COUNT 183 10^3/uL (134-434); RBC 4.28 M/mm3 (4.00-5.60); RDW 14.2 % (11.9-15.9); WHITE BLOOD COUNT 3.2 K/mm3 (4.0-10.0)
[2021-08-23 12:12] LABS: ALBUMIN 3.6 g/dl (3.4-5.0); CALCIUM 8.7 mg/dL (8.5-10.1)
[2021-08-23 12:14] LABS: TOT PROT 6.6 g/dl (6.4-8.2)
[2021-08-23 12:17] LABS: BILIRUBIN,TOTAL 0.4 mg/dL (0.2-1)
[2021-08-23] MEDS: amLODIPine BESYLATE 10 MG TABLET (FP) PO SCH (15:10)
[2021-08-23] MEDS: MELATONIN 5 MG TABLETS PO SCH (22:30)
[2021-08-23] MEDS: THIAMINE HCL 100 MG TABLET (FP) PO SCH (22:30)
[2021-08-24] MEDS: hydrOXYzine PAMOATE 25 MG CAPSULE (FP) PO SCH ×5 (06:35→22:10)
[2021-08-24] MEDS: chlordiazePOXIDE HCL 25 MG CAPSULE PO SCH ×4 (06:35→22:10)
[2021-08-24] MEDS: amLODIPine BESYLATE 10 MG TABLET (FP) PO SCH (10:33)
[2021-08-24] MEDS: PRENATAL VITAMINS W/ FOLIC ACID TABLET (FP) PO SCH (10:33)
[2021-08-24] MEDS: NICOTINE 7 MG/24 HOURS TOPICAL PATCH TD SCH (10:48)
[2021-08-24] MEDS: MELATONIN 5 MG TABLETS PO SCH (22:10)
[2021-08-24] MEDS: THIAMINE HCL 100 MG TABLET (FP) PO SCH (22:10)
[2021-08-25] MEDS ORDERED: chlordiazePOXIDE HCL 10 MG CAPSULE PO PRN
[2021-08-25] MEDS: chlordiazePOXIDE HCL 10 MG CAPSULE PO SCH ×4 (06:38→22:55)
[2021-08-25] MEDS: hydrOXYzine PAMOATE 25 MG CAPSULE (FP) PO SCH ×5 (06:38→22:55)
[2021-08-25] MEDS: PRENATAL VITAMINS W/ FOLIC ACID TABLET (FP) PO SCH (11:12)
[2021-08-25] MEDS: amLODIPine BESYLATE 10 MG TABLET (FP) PO SCH (11:13)
[2021-08-25] MEDS: NICOTINE 7 MG/24 HOURS TOPICAL PATCH TD SCH (11:19)
[2021-08-25] MEDS: MELATONIN 5 MG TABLETS PO SCH (22:55)
[2021-08-25] MEDS: THIAMINE HCL 100 MG TABLET (FP) PO SCH (22:56)
[2021-08-26] MEDS: hydrOXYzine PAMOATE 25 MG CAPSULE (FP) PO SCH ×5 (07:06→22:40)
[2021-08-26] MEDS: chlordiazePOXIDE HCL 10 MG CAPSULE PO SCH ×2 (07:07→19:13)
[2021-08-26] MEDS: amLODIPine BESYLATE 10 MG TABLET (FP) PO SCH (09:53)
[2021-08-26] MEDS: PRENATAL VITAMINS W/ FOLIC ACID TABLET (FP) PO SCH (09:54)
[2021-08-26] MEDS: NICOTINE 7 MG/24 HOURS TOPICAL PATCH TD SCH (09:55)
[2021-08-26] MEDS: MELATONIN 5 MG TABLETS PO SCH (22:40)
[2021-08-26] MEDS: THIAMINE HCL 100 MG TABLET (FP) PO SCH (22:40)
[2021-08-27] MEDS ORDERED: chlordiazePOXIDE HCL 10 MG CAPSULE PO ONE (05:00)
[2021-08-27 06:20] VITALS: BP 104/60; PULSE 56; TEMP 97.1
[2021-08-27] MEDS: hydrOXYzine PAMOATE 25 MG CAPSULE (FP) PO SCH ×2 (06:48→11:07)
[2021-08-27] MEDS: amLODIPine BESYLATE 10 MG TABLET (FP) PO SCH (11:06)
[2021-08-27] MEDS: NICOTINE 7 MG/24 HOURS TOPICAL PATCH TD SCH (11:06)
[2021-08-27] MEDS: PRENATAL VITAMINS W/ FOLIC ACID TABLET (FP) PO SCH (11:07)
== END 2021-08-27 10:18 | disposition home or self-care (01) | DRG 896 ==
LOC: YASAS 14:58 → Y3N 17:07
PROVIDERS: ADMIT Allergy & Immunology; ATTEND Surgery
PROC: HZ2ZZZZ Detoxification Services for Substance Abuse Treatment (ICD-10-PCS; principal; 2021-08-22)
DX: F10.230 Alcohol dependence with withdrawal, uncomplicated (principal); U07.1 COVID-19; F14.20 Cocaine dependence, uncomplicated; F17.210 Nicotine dependence, cigarettes, uncomplicated; I10 Essential (primary) hypertension; J45.20 Mild intermittent asthma, uncomplicated; Z86.11 Personal history of tuberculosis
CPT/HCPCS: 36415; 80053; 85027; 86780; C9803-CS; U0003; U0005